=== PATIENT | female | born 1960 | race Caucasian/White ===

== ENCOUNTER 2023-08-29 16:45 | Inpatient (IN) ==
--- NOTE | 2023-08-29 17:09 | ED Triage Note ---
Date of Service August 29, 2023 Provider in Triage Author: Ronnell Ellis A History of Present Illness This patient was briefly evaluated while in triage. An abbreviated physical exam was performed. This patient is a 63-year-old Female who presents to the ED for evaluation of chest pain and elevated blood pressure. Was at [facility] yesterday, and told to come to ER for evaluation. Is on Lisinopril. BP at home running 190's systolic. Feels tightness in chest. Had labs done at [facility] yesterday. Physical Exam Limited Triage Exam: VITALS: Vitals are noted on the nurse's note and reviewed by myself. Vital signs stable. GENERAL: Well-developed, well-nourished, white female, who is in no acute distress and resting comfortably. Patient is cooperative with the examination. HEART: Regular rate and rhythm without murmurs gallops or rubs. LUNGS: Clear to auscultation bilaterally without wheezes, rales or rhonchi. No retractions or accessory muscle use. NEURO: Patient was alert and oriented to person place and time. CN II through XII grossly intact. Initial orders for labs and / or imaging were placed and patient was placed in the waiting area until a bed is available. Please see further documentation for the full ED course. MDM / Impression Impression Impression: Hypertension, Chest pain, Headache Impression: Hypertension Qualifiers: Hypertension type: unspecified Qualified Code(s): I10 - Essential (primary) hy pertension
[2023-08-29 18:29] LABS: Basophils # (auto) 0.07 K/uL (0.00-0.20); Basophils % (auto) 0.8 %; Eosinophils # (auto) 0.21 K/uL (0.00-0.50); Eosinophils % (auto) 2.3 %; Hematocrit (blood only) 35.9 % (37.0-47.0); Hemoglobin 11.4 g/dl (12.0-16.0); Immature Granulocytes # (auto) 0.02 K/uL (0.01-0.20); Immature Granulocytes % (auto) 0.2 %; Lymphocytes # (auto) 2.34 K/uL (1.20-3.40); Lymphocytes % (auto) 25.4 %; Mean Corpuscular Hemoglobin 25.3 pg (25.0-34.0); Mean Corpuscular Hgb Conc 31.8 g/dL (32.0-36.0); Mean Corpuscular Volume 79.6 fL (80.0-100.0); Mean Platelet Volume 9.9 fL (9.4-12.4); Monocytes # (auto) 0.59 K/uL (0.11-0.59); Monocytes % (auto) 6.4 %; Neutrophils # (auto) 5.98 K/uL (1.40-6.50); Neutrophils % (auto) 64.9 %; Platelet Count 496 K/uL (130-400); RDW Coefficient of Variation 14.8 % (11.5-14.5); RDW Standard Deviation 42.9 fL (36.4-46.3); Red Blood Count 4.51 M/uL (4.20-5.40); White Blood Count 9.21 K/ul (4.8-10.8)
--- NOTE | 2023-08-29 18:29 | XRay Report ---
XR chest 1V portable HISTORY: 63 years-old Female Chest pain, nonspecific hypertension with chest pain COMPARISON: None TECHNIQUE: PA view of the chest FINDINGS: Hiatal hernia. Cardiomediastinal and hilar silhouettes are within normal limits. No pneumothorax, ple ural effusion or airspace consolidation. Bones appear grossly intact. IMPRESSION: No acute process. ACT 112: Negative or not required by law. The above report was generated using voice recognition software. It may contain grammatical, syntax o r spelling errors. Electronically signed by: Julián Duarte M.D. 08/29/2023 6:28 PM
[2023-08-29 18:45] LABS: Albumin Globulin Ratio 1.2 (0.9-2); Albumin Level 4.1 gm/dl (3.4-5.0); BUN Creatinine Ratio 19.8 (10-20); Bilirubin,Total 0.3 mg/dl (0.2-1.0); Calcium 8.9 mg/dl (8.6-10.3); Creatinine Clr Calc Pharmacy 64.9 ml/min; Est GFR (African American) 76.7 ml/min; Est GFR (Non-African American) 66.2 ml/min; Globulin 3.4 gm/dl (2.5-4.0); Magnesium 2.1 mg/dl (1.7-2.4); Potassium 3.4 mmol/L (3.5-5.1); Total Protein 7.5 gm/dl (6.0-8.3)
[2023-08-29 18:50] LABS: Troponin I High Sensitivity 6.3 pg/ml (0-14)
[2023-08-29 19:00] LABS: Thyroid Stimulating Hormone 1.099 uIu/ml (0.300-4.500)
[2023-08-29 19:09] LABS: Adenovirus PCR Not Detected (NotDetected); Bordetella parapertussis PCR Not Detected (NotDetected); Bordetella pertussis PCR Not Detected (NotDetected); Chlamydia pneumoniae PCR Not Detected (NotDetected); Coronavirus 229E PCR Not Detected (NotDetected); Coronavirus CoV-2 (COVID19)PCR Not Detected (NotDetected); Coronavirus HKU1 PCR Not Detected (NotDetected); Coronavirus NL63 PCR Not Detected (NotDetected); Coronavirus OC43PCR Not Detected (NotDetected); Human Metapneumovirus PCR Not Detected (NotDetected); Influenza A PCR Not Detected (NotDetected); Influenza B PCR Not Detected (NotDetected); Mycoplasma pneumoniae PCR Not Detected (NotDetected); Parainfluenza Virus 1 PCR Not Detected (NotDetected); Parainfluenza Virus 2 PCR Not Detected (NotDetected); Parainfluenza Virus 3 PCR Not Detected (NotDetected); Parainfluenza Virus 4 PCR Not Detected (NotDetected); Respiratory Syncytial VirusPCR Not Detected (NotDetected); Rhinovirus/Enterovirus PCR Not Detected (NotDetected)
[2023-08-29] MEDS ORDERED: LORazepam 1 MG/1 ML SYR ED Inj Use IV STA (21:56)
[2023-08-29] MEDS ORDERED: SODIUM CHLORIDE 0.9% 500 ML IV ONE (21:56)
[2023-08-29 22:00] LABS: Appearance Urine Clear (Clear); Bilirubin Urine Negative (Negative); Blood Urine Negative (Negative); Color Urine Yellow; Glucose Urine UA Negative (Negative); Ketones Urine Negative (Negative); Leukocyte Esterase Urine Negative (Negative); Nitrite Urine Negative (Negative); Protein Urine Negative (Negative); Specific Gravity Urine 1.015 (1.000-1.030); Urobilinogen Urine Negative (Negative); pH Urine 6.5 (4.5-7.5)
--- NOTE | 2023-08-29 23:05 | CT Scan Report ---
Exam(s): CT HEAD Without Contrast EXAM: CT Head Without Intravenous Contrast CLINICAL HISTORY: Reason for exam: TOVAR/HTN. TECHNIQUE: Axial computed tomography images of the head/brain without intravenous contrast. CTDI is 35.08 mGy and DLP is 547.75 mGy-cm. Automated exposure control was utilized for the study. A dose lowering technique was utilized adhering to the principles of ALARA. COMPARISON: No relevant prior studies available. FINDINGS: Brain: Unremarkable. No hemorrhage. No significant white matter disease. No edema. Ventricles: Unremarkable. No ventriculomegaly. Bones/joints: Hyperostosis frontalis interna. No acute fracture. Soft tissues: Unremarkable. Sinuses: Unremarkable as visualized. No acute sinusitis. Mastoid air cells: Unremarkable as visualized. No mastoid effusion. IMPRESSION: No evidence of acute intracranial pathology. Electronically signed by: Kierra Ybarra MD 08/29/23 23:05 PM
[2023-08-29] MEDS ORDERED: hydrALAZINE HCL 20 MG/ML VIAL IV STA (23:11)
[2023-08-29] MEDS ORDERED: AMOXICILLIN/CLAVULANATE 875 MG TAB PO ONE (23:27)
--- NOTE | 2023-08-30 01:06 | Emergency Department Note ---
History of Present Illness General Chief complaint: Hypertension Stated complaint: CHEST TIGHNESS, HIGH BP 190/110, WAS OVER 200 Time Seen by Provider: 08/29/23 21:43 History of Present Illness This 63-year-old female presents the ER with concerns for high blood pressure for the past few days also has a headache and some chest discomfort. Patient denies fever, chills, cough, congestion, flank pain, back pain, shortness of breath, leg pain or swelling. No prior cardiac disease. She takes lisinopril 10 mg daily. She saw the GP yesterday as her stomach was giving her problems from her recent dental extraction and was started on Augmentin and some nausea medicine. They believed her blood pressure was elevated secondary to the recent dental procedure. Past Med/Surg History Social History Smoking Status: Never smoker Preferred Language: Australian Feels Safe at Home: Yes Review of Systems A total of 10 systems reviewed and were otherwise negative Physical Exam Vital Signs Vital Signs - 24 hr 08/29/23 17:06 08/29/23 20:43 08/29/23 21:43 Temperature 36.7 C Temperature Source Temporal Artery Scan Pulse Rate 69 77 Pulse Rate [Right Finger] 81 Respiratory Rate 20 16 Respiratory Effort / Characteristics Non-Labored Spontaneous Non-Labored Spontaneous Respiratory Depth Normal Normal Respiratory Pattern Regular Regular Blood Pressure 231/104 H Blood Pressure [Left Arm] 176/93 H Blood Pressure Mean 146 Blood Pressure Mean [Left Arm] 120 Blood Pressure Position Sitting Blood Pressure Position [Left Arm] Sitting Pulse Oximetry 97 99 Oxygen Delivery Method Room Air Room Air Sepsis Recent Fever Within 48 Hours No Sepsis New/Unexplained Change in Mental Status No Sepsis Action Taken by Nursing No Action Required 08/29/23 23:00 Temperature Temperature Source Pulse Rate Pulse Rate [Right Finger] 79 Respiratory Rate 18 Respiratory Effort / Characteristics Respiratory Depth Respiratory Pattern Blood Pressure Blood Pressure [Left Arm] 170/114 H Blood Pressure Mean Blood Pressure Mean [Left Arm] 132 Blood Pressure Position Blood Pressure Position [Left Arm] Pulse Oximetry 96 Oxygen Delivery Method Room Air Sepsis Recent Fever Within 48 Hours Sepsis New/Unexplained Change in Mental Status Sepsis Action Taken by Nursing VITALS: Vitals are noted on the nurse's note and reviewed by myself. Vital signs stable. GENERAL: Pleasant female anxious appearing, in no acute distress, nondiaphoretic, well-developed well-nourished. SKIN: Capillary reflex less than 2 seconds. HEENT: Normocephalic. PERRLA. EOMI. Nares patent. Mucous membranes moist. Neck is supple without nuchal rigidity. HEART: Regular rate and rhythm LUNGS: Clear to auscultation bilaterally without wheezes, rales or rhonchi. No retractions or accessory muscle use. ABDOMEN: Positive bowel sounds x 4. Normal tympanic percussion. Soft, nontender, without masses or organomegaly. Tavera sign negative. No guarding or rebound tenderness. MUSCULOSKELETAL: No gross musculoskeletal defects. NEURO: Patient was alert and oriented to person place and time. No focal neurological deficits. Course Administered Medications Discontinued Medications Amoxicillin/Clavulanate Potassium (Amoxicillin/Clavulanate 875 Mg Tab) 1 tab PO NOW ONE; Protocol Stop: 08/29/23 23:28 Last Admin: 08/29/23 23:34 Dose: 1 tab Documented By: LUZ MARIA Hydralazine HCl (Hydralazine Hcl 20 Mg/Ml Vial) 10 mg IV NOW STA Stop: 08/29/23 23:12 Last Admin: 08/29/23 23:34 Dose: 10 mg Documented By: LUZ MARIA Sodium Chloride (Nss) 500 mls @ 999 mls/hr IV .Q31M ONE Stop: 08/29/23 22:26 Last Infusion: 08/29/23 22:41 Dose: Infused Documented By: LUZ MARIA Admin: 08/29/23 22:01 Dose: 999 mls/hr Documented By: LUZ MARIA Lorazepam (Lorazepam 1 Mg/1 Ml Syr Ed Inj Use) 1 mg IV ONE STA Stop: 08/29/23 21:57 Last Admin: 08/29/23 22:01 Dose: 1 mg Documented By: LUZ MARIA Medical Decision Making Medical Records Attestation: I reviewed the patient's medical records. Home Medications Current Medication List: was personally reviewed by me Laboratory Data Attestation: I reviewed the patient's lab results. 08/29/23 18:00 08/29/23 18:00 Lab Results 08/29/23 08/29/23 08/29/23 Range/Units 18:00 21:37 22:27 WBC 9.21 (4.8-10.8) K/ul RBC 4.51 (4.20-5.40) M/uL Hgb 11.4 L (12.0-16.0) g/dl Hct 35.9 L (37.0-47.0) % MCV 79.6 L (80.0-100.0) fL MCH 25.3 (25.0-34.0) pg MCHC 31.8 L (32.0-36.0) g/dL RDW Std Deviation 42.9 (36.4-46.3) fL RDW Coeff of Bonnie 14.8 H (11.5-14.5) % Plt Count 496 H (130-400) K/uL MPV 9.9 (9.4-12.4) fL Immature Gran % (Auto) 0.2 % Neut % (Auto) 64.9 % Lymph % (Auto) 25.4 % Sullivan % (Auto) 6.4 % Eos % (Auto) 2.3 % Baso % (Auto) 0.8 % Neut # (Auto) 5.98 (1.40-6.50) K/uL Lymph # (Auto) 2.34 (1.20-3.40) K/uL Sullivan # (Auto) 0.59 (0.11-0.59) K/uL Eos # (Auto) 0.21 (0.00-0.50) K/uL Baso # (Auto) 0.07 (0.00-0.20) K/uL Immature Gran # (Auto) 0.02 (0.01-0.20) K/uL Sodium 140 (136-145) mmol/L Potassium 3.4 L (3.5-5.1) mmol/L Chloride 105 (98-107) mmol/L Carbon Dioxide 28 (21-32) mmol/L Anion Gap 7 (3-11) BUN 18 (6-23) mg/dl Creatinine 0.91 (0.6-1.2) mg/dl Est Cr Clr Drug Dosing 64.9 ml/min Est GFR ( Amer) 76.7 ml/min Est GFR (Non-Af Amer) 66.2 ml/min BUN/Creatinine Ratio 19.8 (10-20) Glucose 93 (70-99(Fasting)) mg/dl Calcium 8.9 (8.6-10.3) mg/dl Magnesium 2.1 (1.7-2.4) mg/dl Total Bilirubin 0.3 (0.2-1.0) mg/dl AST 11 L (13-39) U/L ALT 13 (7-52) U/L Alkaline Phosphatase 108 H (34-104) U/L Troponin I High Sens 6.3 3.6 (0-14) pg/ml Total Protein 7.5 (6.0-8.3) gm/dl Albumin 4.1 (3.4-5.0) gm/dl Globulin 3.4 (2.5-4.0) gm/dl Albumin/Globulin Ratio 1.2 (0.9-2) Lipase 27 (11-82) U/L TSH 1.099 (0.300-4.500) uIu/ml Urine Color Yellow Urine Appearance Clear (Clear) Urine pH 6.5 (4.5-7.5) Ur Specific [place] 1.015 (1.000-1.030) Urine Protein Negative (Negative) Urine Glucose (UA) Negative (Negative) Urine Ketones Negative (Negative) Urine Blood Negative (Negative) Urine Nitrite Negative (Negative) Urine Bilirubin Negative (Negative) Urine Urobilinogen Negative (Negative) Ur Leukocyte Esterase Negative (Negative) Adenovirus (PCR) Not Detected (NotDetected) B. pertussis DNA (PCR) Not Detected (NotDetected) B.parapertussis DNA PCR Not Detected (NotDetected) C. pneumoniae DNA (PCR) Not Detected (NotDetected) Coronavirus OC43 (PCR) Not Detected (NotDetected) Coronavirus HKU1 (PCR) Not Detected (NotDetected) Coronavirus 229E (PCR) Not Detected (NotDetected) SARS-CoV-2 (PCR) Not Detected (NotDetected) Coronavirus NL63 (PCR) Not Detected (NotDetected) Human Metapneumovir PCR Not Detected (NotDetected) Influenza Type A (PCR) Not Detected (NotDetected) Influenza Type B (PCR) Not Detected (NotDetected) M. pneumoniae (PCR) Not Detected (NotDetected) Parainfluenza 1 (PCR) Not Detected (NotDetected) Parainfluenza 2 (PCR) Not Detected (NotDetected) Parainfluenza 3 (PCR) Not Detected (NotDetected) Parainfluenza 4 (PCR) Not Detected (NotDetected) RSV (PCR) Not Detected (NotDetected) Entero/Rhino (PCR) Not Detected (NotDetected) Imaging Data Attestation: I personally reviewed and interpreted this imaging study as follows: Radiologist's Impression: Chest X-Ray 08/29/23 17:09 XR chest 1V portable HISTORY: 63 years-old Female Chest pain, nonspecific hypertension with chest pain COMPARISON: None TECHNIQUE: PA view of the chest FINDINGS: Hiatal hernia. Cardiomediastinal and hilar silhouettes are within normal limits. No pneumothorax, pleural effusion or airspace consolidation. Bones appear grossly intact. IMPRESSION: No acute process. ACT 112: Negative or not required by law. The above report was generated using voice recognition software. It may contain grammatical, syntax or spelling errors. Electronically signed by: Julián Duarte M.D. 08/29/2023 6:[address] 08/29/23 21:50 Exam(s): CT HEAD Without Contrast EXAM: CT Head Without Intravenous Contrast CLINICAL HISTORY: Reason for exam: TOVAR/HTN. TECHNIQUE: Axial computed tomography images of the head/brain without intravenous contrast. CTDI is 35.08 mGy and DLP is 547.75 mGy-cm. Automated exposure control was utilized for the study. A dose lowering technique was utilized adhering to the principles of ALARA. COMPARISON: No relevant prior studies available. FINDINGS: Brain: Unremarkable. No hemorrhage. No significant white matter disease. No edema. Ventricles: Unremarkable. No ventriculomegaly. Bones/joints: Hyperostosis frontalis interna. No acute fracture. Soft tissues: Unremarkable. Sinuses: Unremarkable as visualized. No acute sinusitis. Mastoid air cells: Unremarkable as visualized. No mastoid effusion. IMPRESSION: No evidence of acute intracranial pathology. Electronically signed by: Kierra Ybarra MD 08/29/23 23:05 PM [facility] Narrative Prior records/ancillary studies reviewed regarding the history above. Triage Nursing notes reviewed. Additional history obtained from nursing The patient's history was concerning for hypertension. Differential diagnosis: Etiologies such as benign hypertension, hypertensive emergency, cardiovascular pathology, pheochromocytoma, electrolyte abnormality, renal disease, endorgan damage, as well as others were entertained. Physical examination: As above. No signs of end organ damage. ER treatment provided: An order was placed for continuous cardiac monitoring. The monitor shows a rate of 60-100 with a sinus rhythm per my interpretation. Ativan, hydralazine On reassessment the patient felt better. Diagnostic interpretation by me: The electrocardiogram was ordered for HTN ECG: Normal sinus, normal intervals, Q waves in the inferior lead, no acute ST-T wave changes, rate of 67. Impression normal sinus rhythm Q-wave in the inferior leads independently interpreted by myself The labs Independently Interpreted by myself revealed 2 negative troponins, euthyroid Imaging studies: CT of the head negative for intracranial bleed per my independent interpretation and report was reviewed as above Chest x-ray with no acute consolidation, pneumothorax or free air per my independent interpretation Consultation: A consultation was placed with the hospitalist. The case was discussed and diagnostics were reviewed. The patient was evaluated in the ER for further treatment. HEART SCORE: Hx: high/mod/low suspicion: 0 ECG: ST depression/nonspecific changes/normal: 0 Age: Greater than 65/45-64/less than 45: 2 Risk factors: (Hypertension, hyperlipidemia, diabetes, coronary disease, tobacco use, cocaine use): 1 Troponin: Greater than 2 times normal limits/1-2 times normal limits/normal: 0 Total: 3 This appears to be consistent with uncontrolled hypertension with chest pain. The family doctor sent the patient in for further evaluation and workup. Imaging was negative. Nonischemic EKG. 2 negative troponins. Medicine was consulted and the case was discussed. Patient be admitted to the medical service for her elevated blood pressure. By the evaluation outlined above emergent etiologies such as hypertensive emergency, pheochromocytoma, endorgan damage, aortic dissection, pulmonary embolism, pneumonia, pneumothorax, infections, gastrointestinal, as well as others were deemed relatively unlikely. The pt informed about the findings as listed above. All questions were answered and pleased with the treatment. The chart was completed utilizing [employer] voice recognition software. Grammatical errors, random word insertions, pronoun errors, and incomplete sentences are an occassional consequence of this system due to software limitations, ambient noise, and hardware issues. Any formal questions or concerns about the content, text, or information contained within the body of this dictation should be directly addressed to the physician plant attendant or assistant operator for clarification. Impression & Plan Hypertension, Chest pain, Headache Discharge Plan Visit Data Chief Complaint: Hypertension Stated Complaint: CHEST TIGHNESS, HIGH BP 190/110, WAS OVER 200 ED Provider: Gaston Sandoval ED Midlevel Provider: Karyn Boyd Discharge Problem: Hypertension, Chest pain, Headache Patient Disposition: Admitted As Inpatient Condition: Good Forms Stand Alone Forms: [facility] Referrals Referrals: PCP,NO [Primary Care Provider] - Discharge Problem: Hypertension Qualifiers: Hypertension type: unspecified Qualified Code(s): I10 - Essential (primary) hypertension
--- NOTE | 2023-08-30 01:59 | History & Physical Report ---
Date of Service August 30, 2023 Assessment & Plan (1) Hypertensive urgency: Plan: 62-year-old female with past med history significant for hypertension, obesity, stage III kidney disease presents with hypertensive urgency. Patient went to PCPs office yesterday for abdominal discomfort thought could be diverticulitis and prescribed Augmentin. Her blood pressure was high there. But it seemed to get better. But advised to come to the ER if gets elevated. Blood pressures running in 200s.Says has some funny feelings in the chest. No shortness of breath. Currently no cough. No fevers. Has headache. Vision is okay. Appetite is okay. No abdominal pain. She is having alternating constipation and diarrhea for last couple of weeks. Denies any blood in the stools. Normal bladder movements. Hypertensive urgency Received IV hydralazine in the ER Placed on IV labetalol as needed Increase lisinopril to 20 mg daily Follow echo Monitor on telemetry floor Consult cardiology in a.m. for further recommendations Chest discomfort Possible from above 2 sets of troponins negative Will follow repeat troponins and echo Obesity needs counseling Possible diverticulitis Continue Augmentin Full liquid diet for now Will follow CT abdomen pelvis CKD stage III Will follow labs DVT prophylaxis Lovenox Disposition Telemetry floor Full code History of Present Illness Chief Complaint: Hypertensive urgency Primary Care Provider: NO PCP 62-year-old female with past med history significant for hypertension, obesity, stage III kidney disease presents with hypertensive urgency. Patient went to PCPs office yesterday for abdominal discomfort thought could be diverticulitis and prescribed Augmentin. Her blood pressure was high there. But it seemed to get better. But advised to come to the ER if gets elevated. Blood pressures running in 200s.Says has some funny feelings in the chest. No shortness of breath. Currently no cough. No fevers. Has headache. Vision is okay. Appetite is okay. No abdominal pain. She is having alternating constipation and diarrhea for last couple of weeks. Denies any blood in the stools. Normal bladder movements. Past medical history as mentioned above Past surgical history. Right breast biopsy. Colonoscopy. Right knee arthroscopy. Social history. . No smoking. Alcohol rarely. No drug use. Family history. No family history on file Allergies Allergy/AdvReac Type Severity Reaction Status Date / Time No Known Drug Allergies Allergy Unknown Verified 08/30/23 03:22 Home Medications Medication Instructions Recorded Confirmed Type amoxicillin 875 mg-potassium 1 tab PO BID 08/30/23 08/30/23 History clavulanate 125 mg tablet lisinopril 10 mg tablet 10 mg PO DAILY 08/30/23 08/30/23 History omeprazole 20 mg capsule,delayed 20 mg PO DAILY 08/30/23 08/30/23 History release Past Med/Surg History Social History Smoking Status: Never smoker Hx Alcohol Use: Yes Hx Substance Use: No Preferred Language: Occitan Communication Ability: Effective Venetian Blind [employer]er Required: No Beliefs That Will Affect Care: None Current Living Situation: Spouse Feels Safe at Home: Yes Safety Concerns: Feels Safe At This Time Review of Systems Review of Systems: All systems reviewed & are unremarkable except as noted in HPI & below Physical Exam Physical Exam: General- Not in distress Head- atraumatic Eyes- PERRL. ENT- oropharynx clear Neck- supple, no JVD. Lungs- clear to auscultation no wheezing or crackles. Heart- regular rhythm; no murmur, no gallop. Abdomen- normal bowel sounds, soft, nontender, no distension. Extremities- no pretibial edema, no erythema Neuro- alert, oriented x 3; PERRL, no facial palsy; no dysarthria; moves extrem ities. Results & Data Results & Data Vital Signs (Past 12 Hours) Vital Signs Temp Pulse Pulse Resp BP BP Pulse Ox 08/30/23 01:47 91 H 08/30/23 01:00 91 H 18 176/98 H 96 08/29/23 23:00 79 18 170/114 H 96 08/29/23 21:43 77 08/29/23 20:43 81 16 176/93 H 99 08/29/23 17:06 36.7 C 69 20 231/104 H 97 O2 Del Method 08/30/23 01:47 08/30/23 01:00 Room Air 08/29/23 23:00 Room Air 08/29/23 21:43 08/29/23 20:43 Room Air 08/29/23 17:06 Room Air Diagnostic Findings Laboratory Results WBC 9.21 K/ul (4.8-10.8) 08/29/23 18:00 RBC 4.51 M/uL (4.20-5.40) 08/29/23 18:00 Hgb 11.4 g/dl (12.0-16.0) L 08/29/23 18:00 Hct 35.9 % (37.0-47.0) L 08/29/23 18:00 MCV 79.6 fL (80.0-100.0) L 08/29/23 18:00 MCH 25.3 pg (25.0-34.0) 08/29/23 18:00 MCHC 31.8 g/dL (32.0-36.0) L 08/29/23 18:00 RDW Std Deviation 42.9 fL (36.4-46.3) 08/29/23 18:00 RDW Coeff of Bonnie 14.8 % (11.5-14.5) H 08/29/23 18:00 Plt Count 496 K/uL (130-400) H 08/29/23 18:00 MPV 9.9 fL (9.4-12.4) 08/29/23 18:00 Immature Gran % (Auto) 0.2 % 08/29/23 18:00 Neut % (Auto) 64.9 % 08/29/23 18:00 Lymph % (Auto) 25.4 % 08/29/23 18:00 [place] % (Auto) 6.4 % 08/29/23 18:00 Eos % (Auto) 2.3 % 08/29/23 18:00 Baso % (Auto) 0.8 % 08/29/23 18:00 Neut # (Auto) 5.98 K/uL (1.40-6.50) 08/29/23 18:00 Lymph # (Auto) 2.34 K/uL (1.20-3.40) 08/29/23 18:00 [place] # (Auto) 0.59 K/uL (0.11-0.59) 08/29/23 18:00 Eos # (Auto) 0.21 K/uL (0.00-0.50) 08/29/23 18:00 Baso # (Auto) 0.07 K/uL (0.00-0.20) 08/29/23 18:00 Immature Gran # (Auto) 0.02 K/uL (0.01-0.20) 08/29/23 18:00 Sodium 140 mmol/L (136-145) 08/29/23 18:00 Potassium 3.4 mmol/L (3.5-5.1) L 08/29/23 18:00 Chloride 105 mmol/L (98-107) 08/29/23 18:00 Carbon Dioxide 28 mmol/L (21-32) 08/29/23 18:00 Anion Gap 7 (3-11) 08/29/23 18:00 BUN 18 mg/dl (6-23) 08/29/23 18:00 Creatinine 0.91 mg/dl (0.6-1.2) 08/29/23 18:00 Est Cr Clr Drug Dosing 64.9 ml/min 08/29/23 18:00 Est GFR ( Amer) 76.7 ml/min 08/29/23 18:00 Est GFR (Non-Af Amer) 66.2 ml/min 08/29/23 18:00 BUN/Creatinine Ratio 19.8 (10-20) 08/29/23 18:00 Glucose 93 mg/dl (70-99(Fasting)) 08/29/23 18:00 Calcium 8.9 mg/dl (8.6-10.3) 08/29/23 18:00 Magnesium 2.1 mg/dl (1.7-2.4) 08/29/23 18:00 Total Bilirubin 0.3 mg/dl (0.2-1.0) 08/29/23 18:00 AST 11 U/L (13-39) L 08/29/23 18:00 ALT 13 U/L (7-52) 08/29/23 18:00 Alkaline Phosphatase 108 U/L (34-104) H 08/29/23 18:00 Troponin I High Sens 3.6 pg/ml (0-14) 08/29/23 22:27 Total Protein 7.5 gm/dl (6.0-8.3) 08/29/23 18:00 Albumin 4.1 gm/dl (3.4-5.0) 08/29/23 18:00 Globulin 3.4 gm/dl (2.5-4.0) 08/29/23 18:00 Albumin/Globulin Ratio 1.2 (0.9-2) 08/29/23 18:00 Lipase 27 U/L (11-82) 08/29/23 18:00 TSH 1.099 uIu/ml (0.300-4.500) 08/29/23 18:00 Urine Color Yellow 08/29/23 21:37 Urine Appearance Clear (Clear) 08/29/23 21:37 Urine pH 6.5 (4.5-7.5) 08/29/23 21:37 Ur Specific [place] 1.015 (1.000-1.030) 08/29/23 21:37 Urine Protein Negative (Negative) 08/29/23 21:37 Urine Glucose (UA) Negative (Negative) 08/29/23 21:37 Urine Ketones Negative (Negative) 08/29/23 21:37 Urine Blood Negative (Negative) 08/29/23 21:37 Urine Nitrite Negative (Negative) 08/29/23 21:37 Urine Bilirubin Negative (Negative) 08/29/23 21:37 Urine Urobilinogen Negative (Negative) 08/29/23 21:37 Ur Leukocyte Esterase Negative (Negative) 08/29/23 21:37 Adenovirus (PCR) Not Detected (NotDetected) 08/29/23 18:00 B. pertussis DNA (PCR) Not Detected (NotDetected) 08/29/23 18:00 B.parapertussis DNA PCR Not Detected (NotDetected) 08/29/23 18:00 C. pneumoniae DNA (PCR) Not Detected (NotDetected) 08/29/23 18:00 Coronavirus OC43 (PCR) Not Detected (NotDetected) 08/29/23 18:00 Coronavirus HKU1 (PCR) Not Detected (NotDetected) 08/29/23 18:00 Coronavirus 229E (PCR) Not Detected (NotDetected) 08/29/23 18:00 SARS-CoV-2 (PCR) Not Detected (NotDetected) 08/29/23 18:00 Coronavirus NL63 (PCR) Not Detected (NotDetected) 08/29/23 18:00 Human Metapneumovir PCR Not Detected (NotDetected) 08/29/23 18:00 Influenza Type A (PCR) Not Detected (NotDetected) 08/29/23 18:00 Influenza Type B (PCR) Not Detected (NotDetected) 08/29/23 18:00 M. pneumoniae (PCR) Not Detected (NotDetected) 08/29/23 18:00 Parainfluenza 1 (PCR) Not Detected (NotDetected) 08/29/23 18:00 Parainfluenza 2 (PCR) Not Detected (NotDetected) 08/29/23 18:00 Parainfluenza 3 (PCR) Not Detected (NotDetected) 08/29/23 18:00 Parainfluenza 4 (PCR) Not Detected (NotDetected) 08/29/23 18:00 RSV (PCR) Not Detected (NotDetected) 08/29/23 18:00 Entero/Rhino (PCR) Not Detected (NotDetected) 08/29/23 18:00 Impressions Chest X-Ray 08/29/23 17:09 XR chest 1V portable HISTORY: 63 years-old Female Chest pain, nonspecific hypertension with chest pain COMPARISON: None TECHNIQUE: PA view of the chest FINDINGS: Hiatal hernia. Cardiomediastinal and hilar silhouettes are within normal limits. No pneumothorax, pleural effusion or airspace consolidation. Bones appear grossly intact. IMPRESSION: No acute process. ACT 112: Negative or not required by law. The above report was generated using voice recognition software. It may contain grammatical, syntax or spelling errors. Electronically signed by: Julián Duarte M.D. 08/29/2023 6:[address] 08/29/23 21:50 Exam(s): CT HEAD Without Contrast EXAM: CT Head Without Intravenous Contrast CLINICAL HISTORY: Reason for exam: TOVAR/HTN. TECHNIQUE: Axial computed tomography images of the head/brain without intravenous contrast. CTDI is 35.08 mGy and DLP is 547.75 mGy-cm. Automated exposure control was utilized for the study. A dose lowering technique was utilized adhering to the principles of ALARA. COMPARISON: No relevant prior studies available. FINDINGS: Brain: Unremarkable. No hemorrhage. No significant white matter disease. No edema. Ventricles: Unremarkable. No ventriculomegaly. Bones/joints: Hyperostosis frontalis interna. No acute fracture. Soft tissues: Unremarkable. Sinuses: Unremarkable as visualized. No acute sinusitis. Mastoid air cells: Unremarkable as visualized. No mastoid effusion. IMPRESSION: No evidence of acute intracranial pathology. Electronically signed by: Kierra Ybarra MD 08/29/23 23:05 PM ECG Additional Comments: ECG. Normal sinus rhythm with rate of 67. Minimal voltage cardia for LVH. Q waves in inferior leads Code Status & VTE Plan VTE Prophylaxis Plan VTE Prophylaxis will be ordered: Yes
--- OUTSIDE RECORDS SUMMARY | 2023-08-30 02:46 | External Medical Summary | Summary of Care ---
Author Name Unknown Organization [facility] Address [address] [place] [address] Phone [phone] Care Team Providers Care Emergency Worker Name Role Phone Gatito Doss MD Primary Care Provider [phone] Encounter Details Date Type Department Care Team Description 04/24/2023 Orders Only Outcomes Research Department [address] [place] [address] Karyn Barclay [employer] Research Other*[id number] Allergies No known active allergiesdocumented as of this encounter (statuses as of 04/24/2023) Medications Medication Sig Dispensed Refills Start Date End Date Status Calcium 500 MG Oral TabletIndications:Oste oarthritis of multiple joints, unspecified osteoarthritis type Take 1 Tab by mouth daily. 90 Tab 1 07/20/2020 Active Baclofen 20 MG Oral TabletIndications:Cerv icalgia Take by mouth 1 Tablet in the morning AND 1 Tablet at noon AND 1 Tablet before bedtime. 30 Tablet 0 01/22/2022 Active Lisinopril 10 MG Oral Tablet (Prinivil)Indications: Benign hypertension with CKD (chronic kidney disease) stage III (HCC),Stage 3a chronic kidney disease (HCC),Primary hypertension TAKE ONE TABLET BY MOUTH IN THE MORNING 90 Tablet 1 10/23/2022 Active Celecoxib 200 MG Oral Capsule (CeleBREX)Indications: Osteoarthritis of multiple joints, unspecified osteoarthritis type TAKE 1 CAPSULE BY MOUTH EVERY MORNING 90 Capsule 1 12/03/2022 Active Omeprazole 20 MG Oral Capsule Delayed Release (PriLOSEC)Indications: Gastroesophageal reflux disease without esophagitis TAKE ONE CAPSULE BY MOUTH EVERY DAY 90 Capsule 1 01/29/2023 Active documented as of this encounter (statuses as of 04/24/2023) Active Problems Problem Noted Date Body mass index (BMI) of 40.0 to 44.9 in adult 02/12/2022 Overview: 214 Benign hypertension with stage 3a chroni c kidney disease 05/15/2021 Overview: Per CKD protocol Primary hypertension 07/20/2020 Stage 3a chronic kidney disease 07/20/20 20 Overview: EGFR 52.6 documented as of this encounter (statuses as of 04/24/2023) Resolved Problems Problem Noted Date Resolved Date BMI 37.0-37.9, adult 07/20/2020 04/25/2022 Overview: 207 Benign hypertension with CKD (chronic kidney disease) stage III 07/20/2020 05/18/2021 Overview: Per CKD protocol documented as of this encounter (statuses as of 04/24/2023) Immunizations Name Administration Dates Next Due Covid-19 Ad26, Single Dose (Twin/J&J) 021 Seasonal Influenza, PF, 6 mo ns & Above, IM , (Flulaval) 06/23/2021,07/20/2020 TDAP (age 10 and older)(Boostrix) 09/02/2017 Zoster Vaccine Recombinant (Shingrix) 10/20/2020 ,07/20/2020 documented as of this encounter Social History Tobacco Use Types Packs/Day Years Used Date Smoking Tobacco: Never Smokeless Tobacco: Never Alcohol Use Standard Drinks/Week Comments Yes 0 (1 standard drink = 0.6 oz pur e alcohol) 2 times a year. glass of wine Food Insecurity Answer Date Recorded Within the past 12 months, y ou worried that your food would run out before you got money to buy more. Never true 03/02/2021 Within the past 12 months, t he food you bought just didn't last and you didn't have money to get more. Never true 03/02/2021 Sex Assigned at Date Recorded Not on file Job Start Date Occupation Industry Not on file Not on file Not on file documented as of this encounter Plan of Treatment Upcoming Encounters Date Type Specialty Care Team Description 05/03/2023 Office Visit Orthopedics Boyd Middleton MD [address] [place] [id number] Scheduled Orders Name Type Priority Associated Diagnoses Orde r Schedule MYCODE SUBSEQUENT ADULT Lab Routine My[facility] Research Other*[id number] Every 6 Months for 2 Occurrences starting 04/24/2023 until 05/13/2024 Scheduled Procedures Name Priority Associated Diagnoses Date/Ti me COLONOSCOPY FLEXIBLE PROXIMAL DIAGNOSTIC Recall Screen for colon cancer Health Maintenance Due Date Last Done Comments Depression Screening, Annual for Pts 12 and Over 1970 HIV Screening 1973 Cologuard 2003 Fecal Occult Blood Test 2003 Sigmoidoscopy 2003 COVID-19 Vaccine (2 - Booster for Twin series) 06/08/2021 04/13/2021 DXA Scan 2023 Pneumococcal Vaccine: 65+ Years (1 - PCV) 2023 Albumin/Creatinine Ratio 03/23/2023 03/23/2022 GFR 04/08/2023 10/09/2022, 03/03, 04/18/2021, Additional history exists CKD HGB USE SMARTSET 70620 04/25/202304/25, 03/23/2022, 07/20/2020 Influenza Vaccine (FLU shot) (#1) 2023 06/23/2021, 07/20/2020 Mammogram 09/18/2023 09/18/2022, 01/12/2021 CKD PHOS USE SMARTSET [id number] 10/09/2023 10/09/2022, 0 04/18/2021 Lipid Panel 07/20/2025 07/20/2020 Diabetes Screening 10/09/2025 10/09/2022, 0 03/23/2022, 04/18/2021, Additional history exists DTaP,Tdap,and Td Vaccines (2 - Td or Tdap) 09/02/2027 09/02/2017 Colonoscopy 09/20/2030 09/20/2020, 09/20/2020 Colorectal Cancer Screening 09/20/2030 Zoster Vaccines Completed 10/20/2020, 07/20/2020 Pap Smear Discontinued 09/15/2021 GARDASIL-HPV IMMUNIZATION SERIES Aged Out No longer eligible based on patient's age to complete this topic Hepatitis B Aged Out No longer eligi ble based on patient's age to complete this topic MENINGOCOCCAL (MENACTRA/MENVEO) Aged Out No longer eligible based on patient's age to complete this topic documented as of this encounter Medical Devices Not on filedocumented as of this encounter Visit Diagnoses Diagnosis MyCode Research Other*[id number] documented in this encounter Care Teams Emergency Worker Relationship Specialty Start Date End Date Gatito Doss MD [address] [place] [address] [place] [address] PCP - General Family Medicine 07/20/20 documented as of this encounter
--- OUTSIDE RECORDS SUMMARY | 2023-08-30 02:46 | External Medical Summary ---
Author Name Unknown Address Unknown Organization [id number]:[facility] [place] [address] [place] [address] Laboratory Report Ordering Provider Test Date Status FRANCISCO,DURA 08/28/2023 16:30:39 Final Observation Date Value Abnormality Reference (Units ) Status BUN 08/28/2023 16:30:39 15 6-20 (mg/dL) Final Creatinine 08/28/2023 16:30:39 0.9 0.5-1.0 (mg/dL) Final Glomerular filtration rate/1.73 sq M.predicted [Volume Rate/Area] in Serum, Plasma or Blood by Creatinine-based formula (CKD-EPI) 08/28/2023 16:30:39 76 >=60 (mL/min) Final eGFR is calculated based on the CKD-EPI 2020 equation SODIUM 08/28/2023 16:30:39 142 135-146 (m mol/L) Final Potassium 08/28/2023 16:30:39 3.4 Below low normal 3.5 -5.1 (mmol/L) Final Cl 08/28/2023 16:30:39 104 98-107 (mm ol/L) Final CO2 08/28/2023 16:30:39 28 22-32 (mmo l/L) Final Anion gap 08/28/2023 16:30:39 10 7-15 (mmol /L) Final Glucose 08/28/2023 16:30:39 102 70-120 (mg /dL) Final Calcium 08/28/2023 16:30:39 9.0 8.4-10.2 ( mg/dL) Final Performing Location [facility] [place] [address] [place] [address]
--- OUTSIDE RECORDS SUMMARY | 2023-08-30 02:46 | External Medical Summary ---
Author Name Unknown Address Unknown Organization [id number][place] [place] [address] [place] [address] Laboratory Report Ordering Provider Test Date Status FRANCISCO,DURA 08/28/2023 16:30:39 Final Normal: <30 mg/g creatinine< br/>High: 30-300 mg/g creatinine
Very High: >300 mg/g creatinine
Nephrotic: >2200 mg/g creatinine Observation Date Value Abnormality Reference (Units ) Status Albumin, Urine 08/28/2023 16:30:39 5.13 (mg/dL) Final Creatinine, Urine 08/28/2023 16:30:39 330 (mg/dL) Final Albumin/Creatinine [Mass Ratio] in Urine 08/28/2023 16:30:39 16 <30 (mg/g Creat) Final Performing Location [facility] [place] [address] [place] [address]
--- OUTSIDE RECORDS SUMMARY | 2023-08-30 02:46 | External Medical Summary | Summary of Care ---
Author Name Unknown Organization [facility] Address [address] [facility] [place] [address] Phone [phone] Care Team Providers Care Procurement Manager Name Role Phone Gatito Doss MD Primary Care Provider + [phone] Reason for Visit * Reason Comments Acute Encounter Details Date Type Department Care Team (Latest Contact Info) Description 08/28/2023 3:40 PM EST Office Visit Family Medicine [address] [address] Indu Ramos MD [address] [place] [address] [place] [address] Diverticulitis of colon*; Nausea without vomiting Allergies No known active allergiesdocumented as of this encounter (statuses as of 08/28/2023) Medications Medication Sig Dispensed Refills Start Date End Date Status Baclofen 20 MG Oral TabletIndications:Cer vicalgia Take by mouth 1 Tablet in the morning AND 1 Tablet at noon AND 1 Tablet before bedtime. 30 Tablet 0 01/22/2022 Active Calcium 500 MG Oral TabletIndications:Ost eoarthritis of multiple joints, unspecified osteoarthritis type Take 1 Tablet by mouth in the morning. 90 Tablet 1 04/29/2023 Active Lisinopril 10 MG Oral Tablet (Prinivil)Indications :Benign hypertension with CKD (chronic kidney disease) stage III (HCC),Stage 3a chronic kidney disease (HCC),Primary hypertension TAKE 1 TABLET BY MOUTH EVERY MORNING 90 Tablet 1 05/03/2023 Active Omeprazole 20 MG Oral Capsule Delayed Release (PriLOSEC)Indications :Gastroesophageal reflux disease without esophagitis TAKE ONE CAPSULE BY MOUTH EVERY DAY 90 Capsule 0 08/09/2023 Active Celecoxib 200 MG Oral Capsule (CeleBREX)Indications :Osteoarthritis of multiple joints, unspecified osteoarthritis type TAKE ONE CAPSULE BY MOUTH IN THE MORNING 90 Capsule 0 08/09/2023 Active Amoxicillin-Pot Clavulanate 875-125 MG Oral Tablet (Augmentin)Indication s:Diverticulitis of colon Take 1 Tablet by mouth in the morning and 1 Tablet before bedtime. Do all this for 10 days. 20 Tablet 0 08/28/2023 09/07/2023 Active Ondansetron HCl 4 MG Oral TabletIndications:Apollo sea without vomiting Take 1 Tablet by mouth every 8 hours as needed for Nausea. 30 Tablet 0 08/28/2023 Active documented as of this encounter (statuses as of 08/28/2023) Active Problems Problem Noted Date Diagnosed Date Body mass index (BMI) of 40.0 to 44.9 in adult 0 02/12/2022 Overview: 214 Benign hypertension with stage 3a chronic kidney disease 05/15/2021 Overview: Per CKD protocol Primary hypertension 07/20/2020 Stage 3a chronic kidney disease 07/20/2020 Overview: EGFR 52.6 documented as of this encounter (statuses as of 08/28/2023) Resolved Problems Problem Noted Date Diagnosed Date Resolved Date BMI 37.0-37.9, adult 07/20/2020 022 Overview: 207 Benign hypertension with CKD (chronic kidney disease) stage III 07/20/2020 05/18/2021 Overview: Per CKD protocol documented as of this encounter (statuses as of 08/28/2023) Immunizations Name Administration Dates Next Due Covid-19 Ad26, Single Dose (Twin/J&J) 021 Seasonal Influenza, PF, 6 M & above, IM , (FluLaval or Fluzone) 06/23/2021,07/20/2020 TDAP (age 10 and older)(Boostrix) 09/02/2017 Zoster Vaccine Recombinant (Shingrix) 10/20/2020 ,07/20/2020 documented as of this encounter Social History Tobacco Use Types Packs/Day Years Used Date Smoking Tobacco: Never Smokeless Tobacco: Never Alcohol Use Standard Drinks/Week Comments Yes 0 (1 standard drink = 0.6 oz pur e alcohol) 2 times a year. glass of wine Hunger Vital Sign Answer Date Recorded Within the past 12 months, y ou worried that your food would run out before you got the money to buy more. Never true 03/02/20 21 Within the past 12 months, t he food you bought just didn't last and you didn't have money to get more. Never true 03/02/2021 Sex and Gender Information Value Date Recorded Sex Assigned at Not on file Gender Identity Not on file Sexual Orientation Not on file Job Start Date Occupation Industry Not on file Not on file Not on file documented as of this encounter Last Filed Vital Signs Vital Sign Reading Time Taken Comments Blood Pressure 160/96 08/28/2023 4:17 PM EST Pulse 73 08/28/2023 4:04 PM EST Temperature 36.4 C (97.5 F) 08/28/2023 3:48 PM ES T Respiratory Rate - - Oxygen Saturation 99% 08/28/2023 3:48 PM EST Inhaled Oxygen Concentration - - Weight 96.1 kg (211 lb 12.8 oz) 08/28/2023 3:48 PM EST Height - - Body Mass Index 40.02 07/26/2021 9:40 AM EST documented in this encounter Progress Notes * Indu Ramos MD - 08/28/2023 4:07 PM EST Subjective: HPI: Yuly Watson is a 63 year old female with hx of HTN, CKD III seen for For 1 week pt has been having R and mid lower abd pain, loose stool, fatigue - denied any blood in the stool or fever - associated with nausea but no vomiting - did have diarrhea then constipation prior to symptoms onset - denied any rhinorrhea, cough or sore throat Patient Active Problem List Diagnosis Code Primary hypertension I10 Stage 3a chronic kidney disease (HCC) N18.31 Benign hypertension with stage 3a chronic kidney disease (HCC) I12.9, N18.31 Body mass index (BMI) of 40.0 to 44.9 in adult ([facility]) Z68.41 Current Outpatient Medications Medication Sig Dispense Refill Baclofen 20 MG Oral Tablet Take by mouth 1 Tablet in the morning AND 1 Tablet at noon AND 1 Tablet before bedtime. 30 Tablet 0 Calcium 500 MG Oral Tablet Take 1 Tablet by mouth in the morning. 90 Tablet 1 Lisinopril 10 MG Oral Tablet (Prinivil) TAKE 1 TABLET BY MOUTH EVERY MORNING 90 Tablet 1 Omeprazole 20 MG Oral Capsule Delayed Release (PriLOSEC) TAKE ONE CAPSULE BY MOUTH EVERY DAY 90 Capsule 0 Celecoxib 200 MG Oral Capsule (CeleBREX) TAKE ONE CAPSULE BY MOUTH IN THE MORNING 90 Capsule 0 Amoxicillin-Pot Clavulanate 875-125 MG Oral Tablet (Augmentin) Take 1 Tablet by mouth in the morning and 1 Tablet before bedtime. Do all this for 10 days. 20 Tablet 0 Ondansetron HCl 4 MG Oral Tablet Take 1 Tablet by mouth every 8 hours as needed for Nausea. 30 Tablet 0 No current facility-administered medications for this visit. Past Medical History: Diagnosis Date Benign hypertension with CKD (chronic kidney disease) stage III (HCC) 07/20/2020 BMI 37.0-37.9, adult 07/20/2020 207 Encounter for hepatitis C screening test for low risk patient 04/18/2021 negative Primary hypertension 07/20/2020 Rheumatic fever Stage 3a chronic kidney disease (HCC) 07/20/2020 EGFR 52.6 Thrush 11/09/2020 nora albicans Past Surgical History: Procedure Laterality Date BREAST BIOPSY Right benign COLONOSCOPY, DIAGNOSTIC (RECTUM) 09/20/2020 normal with large mouthed sigmoid diverticuli, performed by Mandi Redman MD at [facility] BREAST ALYCIA BILATATERAL Bilateral 01/12/2021 heterogensously dense, category 1 KNEE ARTHROSCOPY/MENISCECTOMY Right 02/2020 Review of patient's allergies indicates: No Known Allergies Family History Problem Relation Age of Onset Breast Cancer No significant family history Social History Tobacco Use Smoking status: Never Smokeless tobacco: Never Substance Use Topics Alcohol use: Yes Comment: 2 times a year. glass of wine Vaping/E-Cigarette Use Vaping/E-Cigarette Substances Vaping/E-Cigarette Devices ROS: -Per HPI OBJECTIVE: BP 160/96 | Pulse 73 | Temp 36.4 C (97.5 F) | Wt 96.1 kg (211 lb 12.8 oz) | LMP 09/02/2013 (Approximate) | SpO2 99% | BMI 40.02 kg/m | BSA 2.03 m PHYSICAL EXAM: Abd: Soft, ND, mild discomfort to palpation of the RLQ ASSESSMENT/PLAN: I suspect diverticulitis (pt does have hx of diverticulosis) - not suspecting appendicitis BP was elevated but improved -- recommend to message the clinic with BP reading in 1 week ER precautions given Diverticulitis of colon (Primary) - Amoxicillin-Pot Clavulanate 875-125 MG Oral Tablet (Augmentin); Take 1 Tablet by mouth in the morning and 1 Tablet before bedtime. Do all this for 10 days. Nausea without vomiting - Ondansetron HCl 4 MG Oral Tablet; Take 1 Tablet by mouth every 8 hours as needed for Nausea. Indu Ramos MD Family medicine, [address] [address] documented in this encounter Nursing Notes * Jocelin Singer CMA - 08/28/2023 3:46 PM EST She is having stomach issues, fatigue, aches and pain. Nausea after she eats. She did have a wisdomtooth pulled about 4weeks ago and has been having trouble since then. documented in this encounter Plan of Treatment Scheduled Procedures Name Priority Associated Diagnoses Date/Ti me COLONOSCOPY FLEXIBLE PROXIMAL DIAGNOSTIC Recall Screen for colon cancer Health Maintenance Due Date Last Done Comments Depression Screening 1970 HIV Screening 1973 Cologuard 2003 Fecal Occult Blood Test 2003 Sigmoidoscopy 2003 DXA Scan 2023 Pneumococcal Vaccine: 65+ Years (1 - PCV) 2023 Albumin/Creatinine Ratio 03/23/2023 03/23/2022 GFR 04/08/2023 10/09/2022, 03/03, 04/18/2021, Additional history exists CKD HGB USE SMARTSET [id number] 04/25/202304/25, 03/23/2022, 07/20/2020 COVID-19 Vaccine ( - season) 2023 04/13/2021 Influenza Vaccine (FLU shot) (#1) 2023 06/23/2021, 07/20/2020 Mammogram 09/18/2023 09/18/2022, 01/12/2021 CKD PHOS USE SMARTSET [id number] 10/09/2023 10/09/2022, 0 04/18/2021 Lipid Panel 07/20/2025 [...] as of this encounter Visit Diagnoses Diagnosis Diverticulitis of colon- Primary Diverticulitis of colon (without mention of hemorrhage) Nausea without vomiting documented in this encounter Care Teams Procurement Manager Relationship Specialty Start Date End Date Gatito Doss MD [address] [place] [address] [place] [phone] PCP - General Family Medicine 07/20/20 documented as of this encounter"
--- OUTSIDE RECORDS SUMMARY | 2023-08-30 02:46 | External Medical Summary | Summary of Care ---
Author Name Unknown Organization [facility] Address [address] [place] [facility] [place] [address] Phone [phone] Care Team Providers Care Soft Top Installer Name Role Phone Gatito Doss MD Primary Care Provider + [phone] Reason for Visit * Reason Onset Date Comments Advice 08/29/2023 High BP Encounter Details Date Type Department Care Team (Late st Contact Info) Description 08/29/2023 Telephone Family Medicine [address] [phone] Gatito Doss MD [address] [place] [address] [place] [address] Advice (High BP //) Allergies No known active allergiesdocumented as of this encounter (statuses as of 08/29/2023) Medications Medication Sig Dispensed Refills Start Date [...] as of this encounter (statuses as of 08/29/2023) Active Problems Problem Noted Date Diagnosed Date Body mass index (BMI) of 40.0 to 44.9 in adult 0 02/12/2022 Overview: 214 Benign hypertension with stage 3a chronic kidney disease 05/15/2021 Overview: Per CKD protocol Primary hypertension 07/20/2020 Stage 3a chronic kidney disease 07/20/2020 Overview: EGFR 52.6 documented as of this encounter (statuses as of 08/29/2023) Resolved Problems Problem Noted Date Diagnosed Date Resolved Date BMI 37.0-37.9, adult 07/20/2020 022 Overview: 207 Benign hypertension with CKD (chronic kidney disease) stage III 07/20/2020 05/18/2021 Overview: Per CKD protocol documented as of this encounter (statuses as of 08/29/2023) Immunizations Name Administration Dates Next Due Covid-19 [...] on file documented as of this encounter Miscellaneous Notes * Telephone Encounter - Elisabeth Wiggins LPN - 08/29/2023 3:22 PM EST Pt calling to report BP. Bp 180/96 229/134 at 9 am today. She feels very fatigued mild headache she feels shaking. She does feel flushed. no chest pain, numbness or vision changes. Pt saw labs this morning, her potassium was low at 3.4 Called office spoke with Kat who was advise by Dr Angulo. She needs to go to ER. She was advised yesterday at her appt if bp remained high to go to ER. Pt verbalized understanding. Pt will go to ER. * Telephone Encounter - Vikas Romero OSA - 08/29/2023 3:20 PM EST Last bp reading 180/96 * Telephone Encounter - Meena Hamm OSA - 08/29/2023 12:08 PM EST Pt calling, states she was seen a couple of days ago for BP concerns. She states this morning it was 229/134 and then 30 min later 215/143. Pt is asking to be advised. Denies feeling dizzy or like she will pass out. Asking to speak with clinic nurse. documented in this encounter Plan of Treatment Scheduled Procedures Name Priority Associated Diagnoses Date/Ti me COLONOSCOPY FLEXIBLE PROXIMAL DIAGNOSTIC Recall Screen for colon cancer Health Maintenance Due Date Last Done Comments Depression Screening 1970 HIV Screening 1973 Cologuard 2003 Fecal Occult Blood Test 2003 Sigmoidoscopy 2003 DXA Scan 2023 Pneumococcal Vaccine: 65+ Years (1 - PCV) 2023 COVID-19 Vaccine (2 - 2022- season) 2023 04/13/2021 Influenza Vaccine (FLU shot) (#1) 2023 06/23/2021, 07/20/2020 Mammogram 09/18/2023 09/18/2022, 01/12/2021 CKD PHOS USE SMARTSET [id number] 10/09/2023 10/09/2022, 0 04/18/2021 GFR 02/27/2024 08/28/2023, 02/0 03/2023, 03/23/2022, Additional history exists Albumin/Creatinine Ratio 08/28/2024 08/28/2023, 0710/2021 CKD HGB USE SMARTSET [id number] 08/28/202408/28, 04/25/2022, 03/23/2022, Additional history exists Lipid Panel 07/20/2025 07/20/2020 Diabetes Screening 08/28/2026 08/28/2023, 0 10/09/2022, 03/23/2022, Additional history exists DTaP,Tdap,and Td Vaccines (2 [...] Not on filedocumented as of this encounter Care Teams Soft Top Installer Relationship Specialty Start Date End Date Gatito Doss MD [address] [place] [address] [place] [phone] PCP - General Family Medicine 07/20/20 documented as of this encounter
--- OUTSIDE RECORDS SUMMARY | 2023-08-30 02:46 | External Medical Summary | Summary of Care ---
Author Name Unknown Organization [facility] Address [address] [place] [address] Phone [phone] Care Team Providers Care Insulation Cutter Name Role Phone Gatito Benavides MD Primary Care Provider + [phone] Reason for Visit * Reason Comments eRx-Medication Refill Encounter Details Date Type Department Care Team Description 05/23/2023 Refill Family Medicine [address] [phone] Gatito Benavides MD [address] [place] [address] [place] [address] Osteoarthritis of multiple joints, unspecified osteoarthritis type Allergies No known active allergiesdocumented as of this encounter (statuses as of 05/23/2023) Medications Medication Sig Dispensed Refills Start Date End Date Status Baclofen 20 MG Oral TabletIndications:Ce rvicalgia Take by mouth 1 Tablet in the morning AND 1 Tablet at noon AND 1 Tablet before bedtime. 30 Tablet 0 01/22/2022 Active Omeprazole 20 MG Oral Capsule Delayed Release (PriLOSEC)Indication s:Gastroesophageal reflux disease without esophagitis TAKE ONE CAPSULE BY MOUTH EVERY DAY 90 Capsule 1 01/29/2023 Active Calcium 500 MG Oral TabletIndications:Os teoarthritis of multiple joints, unspecified osteoarthritis type Take 1 Tablet by mouth in the morning. 90 Tablet 1 04/29/2023 Active Lisinopril 10 MG Oral Tablet (Prinivil)Indication s:Benign hypertension with CKD (chronic kidney disease) stage III (HCC),Stage 3a chronic kidney disease (HCC),Primary hypertension TAKE 1 TABLET BY MOUTH EVERY MORNING 90 Tablet 1 05/03/2023 Active Celecoxib 200 MG Oral Capsule (CeleBREX)Indication s:Osteoarthritis of multiple joints, unspecified osteoarthritis type TAKE 1 CAPSULE BY MOUTH EVERY MORNING 90 Capsule 0 05/23/2023 Active Celecoxib 200 MG Oral Capsule (CeleBREX)Indication s:Osteoarthritis of multiple joints, unspecified osteoarthritis type TAKE 1 CAPSULE BY MOUTH EVERY MORNING 90 Capsule 1 12/03/2022 3 Discontinued documented as of this encounter (statuses as of 05/23/2023) Active Problems Problem Noted Date Body mass index (BMI) of 40.0 to 44.9 in adult 02/12/2022 Overview: 214 Benign hypertension with stage 3a chroni c kidney disease 05/15/2021 Overview: Per CKD protocol Primary hypertension 07/20/2020 Stage 3a chronic kidney disease 07/20/20 20 Overview: EGFR 52.6 documented as of this encounter (statuses as of 05/23/2023) Resolved Problems Problem Noted Date Resolved Date BMI 37.0-37.9, adult 07/20/2020 04/25/2022 Overview: 207 Benign hypertension with CKD (chronic kidney disease) stage III 07/20/2020 05/18/2021 Overview: Per CKD protocol documented as of this encounter (statuses as of 05/23/2023) Immunizations Name Administration Dates Next Due Covid-19 [...] encounter Miscellaneous Notes * Telephone Encounter - Gatito Benavides MD - 05/23/2023 5:28 PM EDTSigned Prescriptions: Disp Refills Celecoxib 200 MG Oral Capsule (CeleBREX) 90 Cap*0 Sig: TAKE 1 CAPSULE BY MOUTH EVERY MORNING Authorizing Provider: GATITO BENAVIDES * Telephone Encounter - Rut Salinas [facility] - 05/23/2023 5:12 PM EDTPending Prescriptions: Disp Refills Celecoxib 200 MG Oral Capsule [Pharmacy Me*90 Cap*0 Sig: TAKE 1 CAPSULE BY MOUTH EVERY MORNING * Telephone Encounter - Rut Salinas [facility] - 05/23/2023 5:11 PM EDT Unable to authorize medication refills for celebrex. Part of the protocol criteria used for refill authorization was not satisfied. Patient has reduced renal function: Baseline method (Adjusted BW): 49.9 (mL/min) Conditions associated with NSAID-induced acute kidney injury (for this patient): Volume depletion: Emesis, diarrhea, sepsis, hemorrhage Medications: Diuretics, ELIZABETH inhibitors, ARBs, calcineurin inhibitors Cirrhosis Congestive heart failure Nephrotic syndrome Hypercalcemia (severe) Chronic kidney disease Renal artery stenosis Older age Please approve if appropriate. Thank you, Rut Salinas [facility] Clinical Pharmacist [facility] ([facility]) (formerly Telepharmacy) 05/23/23 5:11 PM [phone] documented in this encounter Plan of Treatment [...] Additional history exists CKD HGB USE SMARTSET [id number] 04/25/202304/25, 03/23/2022, 07/20/2020 Influenza Vaccine (FLU shot) (#1) 2023 06/23/2021, 07/20/2020 Mammogram 09/18/2023 09/18/2022, 01/12/2021 CKD PHOS USE SMARTSET 70111 10/09/2023 10/09/2022, 0 04/18/2021 Lipid Panel 07/20/2025 [...] as of this encounter Visit Diagnoses Diagnosis Osteoarthritis of multiple joints, unspecified osteoarthritis type documented in this encounter Care Teams Insulation Cutter Relationship Specialty Start Date End Date Gatito Benavides MD [address] [place] [address] [place] [id number] PCP - General Family Medicine 07/20/20 documented as of this encounter
--- OUTSIDE RECORDS SUMMARY | 2023-08-30 02:46 | External Medical Summary | Summary of Care ---
Author Name Unknown Organization [facility] Address [address] [place] [facility] [place] [address] Phone [phone] Care Team Providers Care Lye Boiler Name Role Phone Gatito Doss MD Primary Care Provider + [phone] Reason for Visit * Reason Onset Date Comments Advice 08/29/2023 High BP Encounter Details Date Type Department Care Team (Late st Contact Info) Description 08/29/2023 Telephone Family Medicine [address] [phone] Gatito Doss MD [address] [place] [address] [place] [address] Advice (High BP //) Allergies No [...] 09/18/2023 09/18/2022, 01/12/2021 CKD PHOS USE SMARTSET 43666 10/09/2023 10/09/2022, 0 04/18/2021 GFR 02/27/2024 08/28/2023, 02/0 03/2023, 03/23/2022, Additional history exists Albumin/Creatinine Ratio 08/28/2024 08/28/2023, 0710/2021 CKD HGB USE SMARTSET 89156 08/28/202408/28, 04/25/2022, 03/23/2022, Additional history exists Lipid [...] filedocumented as of this encounter Care Teams Lye Boiler Relationship Specialty Start Date End Date Gatito Doss MD [address] [place] [address] [place] [phone] PCP - General Family Medicine 07/20/20 documented as of this encounter
--- OUTSIDE RECORDS SUMMARY | 2023-08-30 02:46 | External Medical Summary ---
Author Name Unknown Address Unknown Organization K01:[facility] - [address] [facility] [place] [address] Laboratory Report Ordering Provider Test Date Status FRANCISCO,DURA 08/28/2023 16:30:39 Final Observation Date Value Abnormality Reference (Units ) Status Magnesium 08/28/2023 16:30:39 2.4 1.5-2.6 (m g/dL) Final Performing Location [facility] [address] [facility] [address]
--- OUTSIDE RECORDS SUMMARY | 2023-08-30 02:46 | External Medical Summary | Summary of Care ---
Author Name Unknown Organization [facility] Address [address] [facility] [place] [address] Phone [phone] Care Team Providers Care Box Sealing Inspector Name Role Phone Gatito Benavides MD Primary Care Provider + [phone] Reason for Visit * Reason Onset Date Comments Medication Refill 04/26/2023 Encounter Details Date Type Department Care Team Description 04/26/2023 Refill Family Medicine [address] [id number] Gatito Benavides MD [address] [place] [address] [place] [address] Osteoarthritis of multiple joints, unspecified osteoarthritis type Allergies No known active allergiesdocumented as of this encounter (statuses as of 04/29/2023) Medications Medication Sig Dispensed Refills Start Date End Date Status Baclofen 20 MG Oral TabletIndications:Ce rvicalgia Take by mouth 1 Tablet in the morning AND 1 Tablet at noon AND 1 Tablet before bedtime. 30 Tablet 0 01/22/2022 Active Lisinopril 10 MG Oral Tablet (Prinivil)Indication s:Benign hypertension with CKD (chronic kidney disease) stage III (HCC),Stage 3a chronic kidney disease (HCC),Primary hypertension TAKE ONE TABLET BY MOUTH IN THE MORNING 90 Tablet 1 10/23/2022 Active Celecoxib 200 MG Oral Capsule (CeleBREX)Indication [...] the morning. 90 Tablet 1 04/29/2023 Active Calcium 500 MG Oral TabletIndications:Os teoarthritis of multiple joints, unspecified osteoarthritis type Take 1 Tab by mouth daily. 90 Tab 1 07/20/2020 3 Discontinue d(Refill) documented as of this encounter (statuses as of 04/29/2023) Active Problems Problem Noted Date Body mass index (BMI) of 40.0 to 44.9 in adult 02/12/2022 Overview: 214 Benign hypertension with stage 3a chroni c kidney disease 05/15/2021 Overview: Per CKD protocol Primary hypertension 07/20/2020 Stage 3a chronic kidney disease 07/20/20 20 Overview: EGFR 52.6 documented as of this encounter (statuses as of 04/29/2023) Resolved Problems Problem Noted Date Resolved Date BMI 37.0-37.9, adult 07/20/2020 04/25/2022 Overview: 207 Benign hypertension with CKD (chronic kidney disease) stage III 07/20/2020 05/18/2021 Overview: Per CKD protocol documented as of this encounter (statuses as of 04/29/2023) Immunizations Name Administration Dates Next Due Covid-19 [...] Telephone Encounter - Gatito Benavides MD - 04/29/2023 7:56 AM EDTSigned Prescriptions: Disp Refills Calcium 500 MG Oral Tablet 90 Tab*1 Sig: Take 1 Tablet by mouth in the morning. Authorizing Provider: GATITO BENAVIDES * Telephone Encounter - Tara Barros [facility] - 04/26/2023 12:38 PM EDT Pending Prescriptions: Disp Refills Calcium 500 MG Oral Tablet 90 Tab*1 Sig: Take 1 Tablet by mouth in the morning. * Telephone Encounter - Tara Barros [facility] - 04/26/2023 12:38 PM EDT [facility] is currently not authorized to approve refills for the pended medication(s) per refill protocol. Please approve if appropriate. Did you pend patient's preferred pharmacy and medication before forwarding?yes Pharmacy: [id number] [address] [facility] Pending Prescriptions: Disp Refills Calcium 500 MG Oral Tablet 90 Tab*1 Sig: Take 1 Tablet by mouth in the morning. Last Visit: 04/25/2022 (in office), 10/08/2022 (telemedicine) Next Visit: Visit date not found If no future appointments scheduled, and last appointment is greater than a year ago, please schedule patient for a follow-up appointment Last date the medication was ordered: 07/20/2020 Is this request for a controlled substance?No Urine Drug Screen:No results found for this or any previous visit. Patient Phone Numbers Labs: Lab Results Component Value Date/Time CREAT 1.2 (H) 10/09/2022 03:39 PM CREAT 1.1 (H) 07/20/2020 10:57 AM POTASSIUM 4.3 10/09/2022 03:39 PM POTASSIUM 4.4 07/20/2020 10:57 AM TSH 1.93 07/20/2020 10:57 AM LDLCALC 134 (H) 07/20/2020 10:57 AM LDLDIRECT NOT APPLICABLE 07/20/2020 10:57 AM ALT 16 03/23/2022 02:45 PM ALT 12 07/20/2020 10:57 AM Thank you, Tara Barros, PharmD Clinical Pharmacist [facility] ([facility]) (formerly Telepharmacy) 04/26/23 12:38 PM [phone] documented in this encounter Plan of Treatment [...] Additional history exists CKD HGB USE SMARTSET 16038 04/25/202304/25, 03/23/2022, 07/20/2020 Influenza Vaccine (FLU shot) (#1) 2023 06/23/2021, 07/20/2020 Mammogram 09/18/2023 09/18/2022, 01/12/2021 CKD PHOS USE SMARTSET 75472 10/09/2023 10/09/2022, 0 04/18/2021 Lipid Panel 07/20/2025 [...] type documented in this encounter Care Teams Box Sealing Inspector Relationship Specialty Start Date End Date Gatito Benavides MD [address] [place] [address] [place] [address] PCP - General Family Medicine 07/20/20 documented as of this encounter
--- OUTSIDE RECORDS SUMMARY | 2023-08-30 02:46 | External Medical Summary ---
Author Name Unknown Address Unknown Organization K01:LABORATORY [facility] [place] - [address] [place] [address] Laboratory Report Ordering Provider Test Date Status FRANCISCO,DURA 08/28/2023 16:30:39 Final Observation Date Value Abnormality Reference (Units ) Status Hemoglobin 08/28/2023 16:30:39 11.3 Below low normal 12 .0-15.3 (g/dL) Final Performing Location [facility]ATORY [facility] - [address] [place] [address]
--- OUTSIDE RECORDS SUMMARY | 2023-08-30 02:46 | External Medical Summary ---
Author Name Unknown Address Unknown Organization K01:[facility] [place] - [address] [place] [address] Laboratory Report Ordering Provider Test Date Status FRANCISCO,DURA 08/28/2023 16:30:39 Final Observation Date Value Abnormality Reference (Units ) Status Vitamin B12 08/28/2023 16:30:39 [phone] (pg/mL) Final Performing Location [facility] - [address] [place] [address]
--- OUTSIDE RECORDS SUMMARY | 2023-08-30 02:46 | External Medical Summary | Summary of Care ---
Author Name Unknown Organization [facility] Address [address] [place] [place] [address] Phone [phone] Care Team Providers Care Peanut Sheller Name Role Phone Gatito Doss MD Primary Care Provider + [phone] Reason for Visit * Reason Onset Date Comments Advice 08/29/2023 High BP Encounter Details Date Type Department Care Team (Late st Contact Info) Description 08/29/2023 Telephone Family Medicine [address] [address] Gatito Doss MD [address] [place] [address] [place] [address] Advice (High BP //) Allergies No [...] Miscellaneous Notes * Telephone Encounter - Gatito Doss MD - 08/29/2023 3:36 PM EST She needs to go to ER I have not seen her in house in over a year. * Telephone Encounter - Elisabeth Wiggins LPN [...] 09/18/2023 09/18/2022, 01/12/2021 CKD PHOS USE SMARTSET 55079 10/09/2023 10/09/2022, 0 04/18/2021 GFR 02/27/2024 08/28/2023, 02/0 03/2023, 03/23/2022, Additional history exists Albumin/Creatinine Ratio 08/28/2024 08/28/2023, 0710/2021 CKD HGB USE SMARTSET 24170 08/28/202408/28, 04/25/2022, 03/23/2022, Additional history exists Lipid [...] filedocumented as of this encounter Care Teams Peanut Sheller Relationship Specialty Start Date End Date Gatito Doss MD [address] [place] [address] [place] [address] PCP - General Family Medicine 07/20/20 documented as of this encounter
--- OUTSIDE RECORDS SUMMARY | 2023-08-30 02:46 | External Medical Summary | Summary of Care ---
Author Name Unknown Organization [facility] Address [address] [facility] [place] [address] Phone [phone] Care Team Providers Care Hotel Registration Clerk Name Role Phone Gatito Doss MD Primary Care Provider [phone] Reason for Visit * Reason Comments Outpatient Testing Encounter Details Date Type Department Care Team (Late st Contact Info) Description 08/28/2023 4:00 PM EST Laboratory Laboratory [address] [place] [phone] [place] [address] Encounter for long-term (current) use of medications Allergies No known active allergiesdocumented as of [...] as of this encounter Plan of Treatment Pending Results Name Type Priority Associated Diagnoses Date /Time ALBUMIN / CREATININE RATIO, URINE Lab Routine Encounter for long-term (current) use of medications 08/28/2023 4:30 PM EST BASIC METABOLIC PANEL Lab Routine Encounter for long-term (current) use of medications 08/28/2023 4:30 PM EST HGB Lab Routine Encounter for long-term (current) use of medications 08/28/2023 4:30 PM EST VITAMIN B12 Lab Routine Encounter for long-term (current) use of medications 08/28/2023 4:30 PM EST MAGNESIUM Lab Routine Encounter for long-term (current) use of medications 08/28/2023 4:30 PM EST Scheduled Procedures Name Priority Associated Diagnoses Date/Ti [...] Additional history exists CKD HGB USE SMARTSET 08301 04/25/202304/25, 03/23/2022, 07/20/2020 COVID-19 Vaccine (2 - season) 2023 04/13/2021 Influenza Vaccine (FLU shot) (#1) 2023 06/23/2021, 07/20/2020 Mammogram 09/18/2023 09/18/2022, 01/12/2021 CKD PHOS USE SMARTSET 30722 10/09/2023 10/09/2022, 0 04/18/2021 Lipid Panel 07/20/2025 [...] as of this encounter Visit Diagnoses Diagnosis Encounter for long-term (current) use of medications Encounter for long-term (current) use of other medications documented in this encounter Care Teams Hotel Registration Clerk Relationship Specialty Start Date End Date Gatito Doss MD [address] [place] [address] [place] [address] PCP - General Family Medicine 07/20/20 documented as of this encounter
--- OUTSIDE RECORDS SUMMARY | 2023-08-30 02:46 | External Medical Summary | Summary of Care ---
Author Name Unknown Organization [facility] Address [address] [facility] [place] [address] Phone [phone] Care Team Providers Care Soil And Plant Scientist Name Role Phone Gatito Doss MD Primary Care Provider + [phone] Reason for Visit * Reason Comments eRx-Medication Refill Encounter Details Date Type Department Care Team Description 05/02/2023 Refill Family Medicine [address] [phone] Gatito Doss MD [address] [place], [place] [address] [address] Benign hypertension with CKD (chronic kidney disease) stage III (HCC); Stage 3a chronic kidney disease (HCC); Primary hypertension Allergies No known active allergiesdocumented as of this encounter (statuses as of 05/03/2023) Medications Medication Sig Dispensed Refills Start Date End Date Status Baclofen 20 MG Oral TabletIndications:Ce rvicalgia Take by mouth 1 Tablet in the morning AND 1 Tablet at noon AND 1 Tablet before bedtime. 30 Tablet 0 01/22/2022 Active Celecoxib 200 MG Oral Capsule (CeleBREX)Indication [...] EVERY MORNING 90 Tablet 1 05/03/2023 Active Lisinopril 10 MG Oral Tablet (Prinivil)Indication s:Benign hypertension with CKD (chronic kidney disease) stage III (HCC),Stage 3a chronic kidney disease (HCC),Primary hypertension TAKE ONE TABLET BY MOUTH IN THE MORNING 90 Tablet 1 10/23/2022 3 Discontinued documented as of this encounter (statuses as of 05/03/2023) Active Problems Problem Noted Date Body mass index (BMI) of 40.0 to 44.9 in adult 02/12/2022 Overview: 214 Benign hypertension with stage 3a chroni c kidney disease 05/15/2021 Overview: Per CKD protocol Primary hypertension 07/20/2020 Stage 3a chronic kidney disease 07/20/20 20 Overview: EGFR 52.6 documented as of this encounter (statuses as of 05/03/2023) Resolved Problems Problem Noted Date Resolved Date BMI 37.0-37.9, adult 07/20/2020 04/25/2022 Overview: 207 Benign hypertension with CKD (chronic kidney disease) stage III 07/20/2020 05/18/2021 Overview: Per CKD protocol documented as of this encounter (statuses as of 05/03/2023) Immunizations Name Administration Dates Next Due Covid-19 [...] encounter Miscellaneous Notes * Telephone Encounter - Tommy Guillaume MD - 05/03/2023 3:26 PM EDT Signed Prescriptions: Disp Refills Lisinopril 10 MG Oral Tablet (Prinivil) 90 Tab*1 Sig: TAKE 1 TABLET BY MOUTH EVERY MORNING Authorizing Provider: TOMMY GUILLAUME * Telephone Encounter - Sabiha Choi [facility] - 05/03/2023 9:50 AM EDTPending Prescriptions: Disp Refills Lisinopril 10 MG Oral Tablet (Prinivil) 90 Tab*1 Sig: TAKE 1 TABLET BY MOUTH EVERY MORNING * Telephone Encounter - Sabiha Choi [facility] - 05/03/2023 9:50 AM EDT Unable to authorize medication refills for pended medication(s) at this time. Part of the protocol criteria used for refill authorization was not satisfied. Patient needs blood pressure on file yearly. Please approve if appropriate. Thanks, Sabiha Choi Clinical Pharmacist Centralized Clinical Pharmacy Services ([facility]PS) (Formerly Telepharmacy) [phone] 05/03/2023, 9:50 AM * Telephone Encounter - Sabiha Choi RPh - 05/03/2023 9:50 AM EDT Did you pend patient's preferred pharmacy and medication before forwarding?yes Pharmacy: [id number] [address] [facility] Pending Prescriptions: Disp Refills Lisinopril 10 MG Oral Tablet (Prinivil) [*90 Tab*1 Sig: TAKE 1 TABLET BY MOUTH EVERY MORNING Last Visit: 04/25/2022 (in office), 10/08/2022 (telemedicine) Next Visit: Visit date not found If no future appointments scheduled, and last appointment is greater than a year ago, please schedule patient for a follow-up appointment Last date the medication was ordered: 10/23/22 Is this request for a controlled substance?No [...] 02:45 PM ALT 12 07/20/2020 10:57 AM documented in this encounter Plan of Treatment [...] Additional history exists CKD HGB USE SMARTSET 94851 04/25/202304/25, 03/23/2022, 07/20/2020 Influenza Vaccine (FLU shot) (#1) 2023 06/23/2021, 07/20/2020 Mammogram 09/18/2023 09/18/2022, 01/12/2021 CKD PHOS USE SMARTSET 39105 10/09/2023 10/09/2022, 0 04/18/2021 Lipid Panel 07/20/2025 [...] as of this encounter Visit Diagnoses Diagnosis Benign hypertension with CKD (chronic kidney disease) stage III (HCC) Benign hypertensive kidney disease with chronic kidney disease stage I through stage IV, or unspecified Stage 3a chronic kidney disease (HCC) Primary hypertension Unspecified essential hypertension documented in this encounter Care Teams Soil And Plant Scientist Relationship Specialty Start Date End Date Gatito Doss MD [address] [place] [address] [place] [address] PCP - General Family Medicine 07/20/20 documented as of this encounter
[2023-08-30] MEDS ORDERED: NITROGLYCERIN SL 0.4 MG/TAB TAB SL PRN (02:47)
[2023-08-30] MEDS ORDERED: OPTIRAY 320 500ml IV ONE (03:10)
[2023-08-30] MEDS: Patient's ALLERGY Info needs ENTERED SCH ×4 (03:28→03:31)
[2023-08-30 04:46] LABS: Basophils # (auto) 0.06 K/uL (0.00-0.20); Basophils % (auto) 0.6 %; Eosinophils # (auto) 0.15 K/uL (0.00-0.50); Eosinophils % (auto) 1.5 %; Hematocrit (blood only) 35.5 % (37.0-47.0); Hemoglobin 10.9 g/dl (12.0-16.0); Immature Granulocytes # (auto) 0.03 K/uL (0.01-0.20); Immature Granulocytes % (auto) 0.3 %; Lymphocytes # (auto) 1.54 K/uL (1.20-3.40); Lymphocytes % (auto) 15.3 %; Mean Corpuscular Hemoglobin 24.8 pg (25.0-34.0); Mean Corpuscular Hgb Conc 30.7 g/dL (32.0-36.0); Mean Corpuscular Volume 80.9 fL (80.0-100.0); Monocytes # (auto) 0.51 K/uL (0.11-0.59); Monocytes % (auto) 5.1 %; Neutrophils # (auto) 7.79 K/uL (1.40-6.50); Neutrophils % (auto) 77.2 %; Platelet Count 421 K/uL (130-400); RDW Coefficient of Variation 14.7 % (11.5-14.5); Red Blood Count 4.39 M/uL (4.20-5.40); White Blood Count 10.08 K/ul (4.8-10.8)
[2023-08-30 05:04] LABS: BUN Creatinine Ratio 17.9 (10-20); Calcium 8.5 mg/dl (8.6-10.3); Creatinine Clr Calc Pharmacy 91.8 ml/min; Est GFR (African American) 106.9 ml/min; Est GFR (Non-African American) 92.2 ml/min; Potassium 3.1 mmol/L (3.5-5.1)
[2023-08-30 05:11] LABS: Troponin I High Sensitivity 5.4 pg/ml (0-14)
[2023-08-30] MEDS ORDERED: Nursing to Pharmacy Communication SCH (05:45)
--- NOTE | 2023-08-30 08:26 | CT Scan Report ---
CT SCAN OF THE ABDOMEN AND PELVIS WITH IV CONTRAST CLINICAL HISTORY: Generalized abdominal pain. COMPARISON STUDY: No priors. TECHNIQUE: Following the IV administration of 84 cc of Optiray 320, CT scan of the abdomen and pelvi s is performed from the lung bases to the proximal femora. Images are reviewed in the axial, sagittal , and coronal planes. IV contrast was administered without complication. A dose lowering technique wa s utilized adhering to the principles of ALARA. CT DOSE: 1346.26 mGy.cm FINDINGS: Lung bases: The heart is normal in size and without pericardial effusion. The lung bases are clear. T here is a moderate to large hiatal hernia. Liver: The contrast-enhanced liver is normal in size, contour, and attenuation. There is no intrahepa tic biliary ductal dilatation. The hepatic veins and portal veins are patent. Gallbladder: Unremarkable. Spleen: Normal in size and attenuation. Pancreas: Unremarkable. Adrenal glands: Unremarkable. Kidneys: The contrast enhanced kidneys are normal in size. 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 There is likely a 4 mm calculus a long the course of the distal left ureter seen on image #286. A distal ureteral stone is not excluded . There is mild fullness of the left upper pole collecting system. Cortical scarring is seen in the l eft upper pole. There are at least 6 nonobstructing calculi in the left upper pole moiety which measu re up to 6 mm. No right renal calculi are identified on this contrast-enhanced examination. The kidne ys enhance symmetrically. There is moderate right hydronephrosis. The right ureter is normal in calib er, with no obstructing stone or lesion seen. Abdominal vasculature: The abdominal aorta is normal in course and caliber noting scattered foci of a therosclerotic calcification. Bowel: There is mild sigmoid diverticulosis without CT evidence of acute diverticulitis. No bowel obs truction is seen. Moderate fecal attention is noted in the right colon. The appendix is well-visuali zed and normal. Peritoneum: There is no intraperitoneal free air or abdominal ascites. There is a fat-containing umbi lical hernia. Lymphadenopathy: None. Pelvic viscera: The bladder is normal as visualized. There is a heterogeneously enhancing left adnexa l mass seen on image #279. This measures 4.3 x 6.2 x 4.6 cm and appears to arise from the left aspect of the uterine body. This favors a pedunculated fibroid, and this is remote from the left ovary. The ovaries are normal as visualized. Skeletal structures: There is mild sclerotic change noted in the sacroiliac joints. No lytic or blast ic lesions are seen. IMPRESSION: 1. 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 Numerous nonobstructing calculi are seen in the upper pole. 2. A 4 mm calculus is seen along the course of the distal left ureter. This is difficult to localize and a distal ureteral stone is not excluded. Correlate with clinical findings and urinalysis. 3. There is fullness of the left upper pole renal collecting system. There is also moderate hydroneph rosis on the right. 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 Follow-up with urology is recommended. 4. A 6.2 cm heterogeneously enhancing left adnexal mass closely approximates the uterus and this like ly represents a pedunculated fibroid. This is remote from the left ovary. Nonemergent pelvic ultrasou nd is recommended for further assessment. 5. Sigmoid diverticulosis without CT evidence of acute diverticulitis. 6. Moderate to large hiatal hernia. 7. Additional findings as above. ACT 112: Negative or not required by law. Electronically signed by: Merrill Davis M.D. 08/30/2023 8:25 AM
[2023-08-30] MEDS ORDERED: PNEUMOCOCCAL VACCINE (PCV20) 20-VAL CONJ-DIP CRM/PF 0.5 ML SYR IM ONE (09:00)
--- NOTE | 2023-08-30 10:17 | Cardiology Consultation ---
Date of Consultation August 30, 2023 Assessment & Plan (1) Hypertensive urgency: (2) Headache: (3) Hypokalemia: (4) History of recent dental procedure: Plan Hypertensive urgency. + LVH on TTE. Nonpharmacologic and pharmacologic treatment of hypertension discussed. Lisinopril increased from 10 mg/day to 20 mg/day on admission. Add carvedilol. Add spironolactone 25 mg/day noting hypokalemia and hypertension. Discontinue Celebrex. Avoid NSAIDs if possible. History of rheumatic fever without history of rheumatid heart disease. TTE OK, normal to hyperdynamic LV systolic function, EF 65 to 70%, mild concentric left ventricular hypertrophy, no significant valvular pathology Recent dental work. Subjective chills. Check blood cultures. Atherosclerotic calcification. Recommend addition of aspirin and statin therapy. Hypokalemia. Supplement potassium orally and add spironolactone as above Anemia. Indices suggestive of iron deficiency. Check iron studies. Recommend evaluation for underlying cause. Moderate to large hiatal hernia. Continue PPI. 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 As per Hospitalist and Urology. Supervising Physician Co-Signing Physician Notes 63-year-old female seen and examined at the bedside. Presented to the emergency department with headache, chest discomfort, and elevated blood pressure. Other symptoms include abdominal discomfort, and nausea. Lab studies demonstrating hypokalemia and microcytic anemia. Currently patient feeling better. Hide headache improved. Blood pressure initially 231/104 now down to 161/85. Treated with IV hydralazine and lorazepam in ER. PE: Hypertensive. Gen: NAD, AAO x3. Heart: Regular rhythm, normal S1-S2. No murmur. Lungs: Clear bilateral, no rales, rhonchi, wheeze. Extremities: No edema. Neuro: No focal deficit. A/P: Agree with PA-C history, physical examine findings, assessment and plan. Blood pressure trending downward with addition of IV hydralazine, oral lisinopril, and Aldactone. Initiate beta-cristina with carvedilol 3.125 mg twice daily. First dose this evening. No evidence of acute coronary syndrome. Results of echocardiogram discussed demonstrating hypertensive heart disease. Outpatient stress testing when blood pressure controlled. History of Present Illness Reason for Consultation: Hypertensive urgency Requesting Physician: Dr. West Attending Physician: Dr. Tuttle History of Present Illness Mrs. Yuly Watson is a very pleasant 63-year-old female who was in her usual state of health until approximately 4 weeks ago. At that time she had a wisdom tooth pulled. She recalls the doctor stating that there was a little bit of infection there however she was not prescribed an antibiotic. Since that time she notes that her stomach has been "all messed up." She describes having diarrhea for couple days and then being constipated for couple days. She notes that she is typically very regular and does not require anything. She notes nausea, being gassy, and having discomfort in the lower abdomen. She went to see her PCP et al the day before yesterday and was prescribed Augmentin for possible diverticulitis. At that time her blood pressure was noted to be markedly elevated though improved throughout the visit and she was advised to monitor her blood pressure at home. The next morning she noted a blood pressure of 210/110 and was referred to the ER by her PCP. She notes having a headache and continuing to feel nauseated. She typically drinks 1 or 2 cups of coffee in the morning and has not had any the last 2 days. She has not had anything to eat since prior to arrival. She denies chest pain. No palpitations. No pleuritic pain. No difficulty breathing. No orthopnea or PND. No lower extremity peripheral edema. No abr upt weight gain. No fevers though she describes having chills off and on and trouble regulating the heat in her body. No rash. She notes having history of rheumatic fever couple of times as a child and is chronically prescribed Celebrex for swelling in her joints. She notes that her blood pressure typically runs 140/60 at home while on lisinopril 10 mg/day. Past Medical and Surgical History: Hypertension Chart history of stage III chronic kidney disease Elevated BMI Rheumatic fever GERD Arthroscopic right knee surgery Tubal ligation Right breast biopsy Family History: Mother has atrial fibrillation, alive and well. Father is without cardiac issues. 1 brother with CAD status post CABG. Another brother with CAD, details unknown Social History no tobacco. Rare alcohol, 1-2 drinks per year. No illegal drug use. 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 Allergies Allergy/AdvReac Type Severity Reaction Status Date / Time No Known Drug Allergies Allergy Unknown Verified 08/30/23 03:22 Home Medications Medication Instructions Recorded Confirmed Type amoxicillin 875 mg-potassium 1 tab PO BID 08/30/23 08/30/23 History clavulanate 125 mg tablet lisinopril 10 mg tablet 10 mg PO DAILY 08/30/23 08/30/23 History omeprazole 20 mg capsule,delayed 20 mg PO DAILY 08/30/23 08/30/23 History release Patient History Social History Smoking Status: Never smoker Hx Alcohol Use: Yes Hx Substance Use: No Preferred Language: [place] Islander Communication Ability: Effective Doctorate [employer] Chiropractic Required: No Beliefs That Will Affect Care: None Current Living Situation: Spouse Feels Safe at Home: Yes Review of Systems Review of Systems: Complete Review of Systems: Constitutional: + Chills. No fevers. No rash. No abrupt change in weight. Notes previously taking/needing supplemental potassium, discontinued when she moved here due to renal concerns for fci use. HEENT: No amaurosis fugax. No blurred vision. No double vision. No recent visual changes. Pulmonary: No history of COPD or asthma. Cardiac: No prior cardiac history. GI/Abd: See above. No melena or hematochezia. Heartburn controlled on omeprazole. No liver problems. Vascular: No history of carotid artery disease, AAA, or PAD. Hematologic: + Anemia. Musculoskeletal: Swelling of the joints, on Celebrex daily Skin: No rash. Neurologic: No history of TIA or CVA. Female : See above. Endocrine: No history of DM or thyroid problems. Complete Review of Systems is as stated above, negative, or noncontributory. Physical Exam Physical Exam: General: A&Ox3. NAD. Elevated BMI. HENT: Normocephalic. Atraumatic. Eyes: PER. Conjunctiva pink, sclera clear. Neck: No carotid bruits. No JVD. Heart: Regular at 90 bpm. No murmur. No rub. No gallop. Lungs: Clear to auscultation. Abdomen: +BS. Soft. Nontender. No masses or organomegaly. Extremities: No clubbing, cyanosis, or edema. Limited neurological examination is without focal deficits. Pulses: radial=2/4, posterior tibial=2/4. Results & Data Vital Signs (Past 12 Hours) Vital Signs Pulse Pulse Resp BP Pulse Ox Pulse Ox O2 Del Method 08/30/23 08:04 89 21 161/85 H 95 Room Air 08/30/23 07:03 100 H 08/30/23 03:18 102 H 20 181/83 H 97 Room Air 08/30/23 03:17 96 08/30/23 02:33 96 H 18 180/97 H 98 Room Air 08/30/23 01:47 91 H 08/30/23 01:00 91 H 18 176/98 H 96 Room Air 08/29/23 23:00 79 18 170/114 H 96 Room Air O2 Del Method 08/30/23 08:04 08/30/23 07:03 08/30/23 03:18 08/30/23 03:17 Room Air 08/30/23 02:33 08/30/23 01:47 08/30/23 01:00 08/29/23 23:00 Laboratory Results Cardiac Enzymes 08/29/23 08/29/23 08/30/23 Range/Units 18:00 22:27 04:12 AST 11 L (13-39) U/L Troponin I High Sens 6.3 3.6 5.4 (0-14) pg/ml CBC 08/29/23 08/30/23 Range/Units 18:00 04:12 WBC 9.21 10.08 (4.8-10.8) K/ul RBC 4.51 4.39 (4.20-5.40) M/uL Hgb 11.4 L 10.9 L (12.0-16.0) g/dl Hct 35.9 L 35.5 L (37.0-47.0) % Plt Count 496 H 421 H (130-400) K/uL Neut # (Auto) 5.98 7.79 H (1.40-6.50) K/uL Lymph # (Auto) 2.34 1.54 (1.20-3.40) K/uL [place] # (Auto) 0.59 0.51 (0.11-0.59) K/uL Eos # (Auto) 0.21 0.15 (0.00-0.50) K/uL Baso # (Auto) 0.07 0.06 (0.00-0.20) K/uL Comprehensive Metabolic Panel 08/29/23 08/30/23 Range/Units 18:00 04:12 Sodium 140 140 (136-145) mmol/L Potassium 3.4 L 3.1 L (3.5-5.1) mmol/L Chloride 105 106 (98-107) mmol/L Carbon Dioxide 28 25 (21-32) mmol/L BUN 18 12 (6-23) mg/dl Creatinine 0.91 0.67 (0.6-1.2) mg/dl Glucose 93 95 (70-99(Fasting)) mg/dl Calcium 8.9 8.5 L (8.6-10.3) mg/dl AST 11 L (13-39) U/L ALT 13 (7-52) U/L Alkaline Phosphatase 108 H (34-104) U/L Total Protein 7.5 (6.0-8.3) gm/dl Albumin 4.1 (3.4-5.0) gm/dl Intake and Output 08/29/23 08/30/23 08/30/23 22:59 06:59 14:59 Intake Total 500 / 500 Balance 500 / 500 Intake: IV 500 / 500 Sodium Chloride 0.9% 500 ml @ 500 / 500 999 mls/hr IV .Q31M ONE Rx#: [id number] Other: # Unmeasured Voids 1 Weight 95 kg 95 kg Weight Measurement Method Chair Scale [facility] Diagnostic Findings Data: EKG on presentation revealed normal sinus rhythm at 67 bpm with voltage criteria for LVH. Cannot rule out an old anterior infarct. QTc 464 ms. Continuous monitoring specialist reveals sinus/sinus tachycardia. Current heart rate is 96 bpm. Resting echocardiography on August 30, 2023 Resting echocardiography on August 30, 2023 revealed normal to hyperdynamic LV systolic function, EF 65 to 70% with mild concentric left ventricular hypertrophy. No significant valvular pathology observed High-sensitivity troponin negative x 3 at 6.3 then 3.6 then 5.4 pg/mL Chest x-ray: No acute process Head CT: No evidence of acute intracranial pathology CT abdomen/pelvis: Reviewed. Lung bases: The heart is normal in size and without pericardial effusion. The lung bases are clear. There is a moderate to large hiatal hernia. Liver: The contrast-enhanced liver is normal in size, contour, and attenuation. There is no intrahepatic biliary ductal dilatation. The hepatic veins and portal veins are patent. Gallbladder: Unremarkable. Spleen: Normal in size and attenuation. Pancreas: Unremarkable. Adrenal glands: Unremarkable. Kidneys: The contrast enhanced kidneys are normal in size. 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 There is likely a 4 mm calculus along the course of the distal left ureter seen on image #286. A distal ureteral stone is not excluded. There is mild fullness of the left upper pole collecting system. Cortical scarring is seen in the left upper pole. There are at least 6 nonobstructing calculi in the left upper pole moiety which measure up to 6 mm. No right renal calculi are identified on this contrast-enhanced examination. The kidneys enhance symmetrically. There is moderate right hydronephrosis. The right ureter is normal in caliber, with no obstructing stone or lesion seen. Abdominal vasculature: The abdominal aorta is normal in course and caliber noting scattered foci of atherosclerotic calcification. Bowel: There is mild sigmoid diverticulosis without CT evidence of acute diverticulitis. No bowel obstruction is seen. Moderate fecal attention is noted in the right colon. The appendix is well-visualized and normal. Peritoneum: There is no intraperitoneal free air or abdominal ascites. There is a fat-containing umbilical hernia. Lymphadenopathy: None. Pelvic viscera: The bladder is normal as visualized. There is a heterogeneously enhancing left adnexal mass seen on image #279. This measures 4.3 x 6.2 x 4.6 cm and appears to arise from the left aspect of the uterine body. This favors a pedunculated fibroid, and this is remote from the left ovary. The ovaries are normal as visualized. Skeletal structures: There is mild sclerotic change noted in the sacroiliac joints. No lytic or blastic lesions are seen.
[2023-08-30] MEDS ORDERED: POTASSIUM CHLORIDE CRTAB 20 MEQ TABCR PO ONE (10:44)
[2023-08-30] MEDS: lisinopril 20 MG TAB PO SCH (10:56)
[2023-08-30] MEDS: AMOXICILLIN/CLAVULANATE 875 MG TAB PO SCH ×2 (10:57→23:11)
[2023-08-30] MEDS: PANTOprazole 40 MG TAB PO SCH (10:57)
[2023-08-30] MEDS: ENOXAPARIN INJ 40 MG/0.4 ML SYR SQ SCH (10:58)
--- NOTE | 2023-08-30 11:06 | Electrocardiogram Report ---
Test Reason : Blood Pressure : / mmHG Vent. Rate : 067 BPM Atrial Rate : 067 BPM P-R Int : 158 ms QRS Dur : 072 ms QT Int : 440 ms P-R-T Axes : 044 001 036 degrees QTc Int : 464 ms Normal sinus rhythm Minimal voltage criteria for LVH, may be normal variant Nonspecific ST abnormality Abnormal ECG No previous ECGs available Confirmed by David Mcmahon ([id number]) on 08/30/2023 11:06:10 AM Referred By: REFERRED SELF Confirmed By:Jose Mcmahon
[2023-08-30] MEDS: SPIRONOLACTONE 25 MG TAB PO SCH (11:48)
[2023-08-30] MEDS: ACETAMINOPHEN 325 MG TAB PO PRN ×2 (13:53→19:47)
--- NOTE | 2023-08-30 14:23 | Urology Consultation ---
Date of Consultation August 30, 2023 Assessment & Plan (1) Obstruction of right ureteropelvic junction (UPJ): (2) Duplicated left renal collecting system: (3) Left ureteral calculus: Plan 63-year-old female who was admitted due to hypertensive emergency. CT scan was performed which showed a duplicated left ureteral system with mild left upper pole hydronephrosis and a distal left ureteral calculus. Her right kidney showed mild hydronephrosis with no obvious obstruction and is likely a chronic UPJ. Patient is asymptomatic currently from her left ureteral calculus. There is no concern for infection and her kidney function is stable so no indication for stent placement. Recommend medical expulsive therapy with Flomax. She can continue having a diet. No plans for surgery this hospitalization Discussed patient's right UPJ obstruction and duplicated left ureter. Neither of these require any immediate attention. She likely has had a right UPJ since . Urology has sent a message to schedule outpatient follow-up with a repeat CT scan to ensure passage of her stone. Indications to return to the hospital regarding kidney stone were reviewed with the patient. Urology to sign off History of Present Illness Attending Physician: Carlyn Tuttle MD History of Present Illness 63-year-old female who was admitted due to hypertensive emergency. CT scan was performed which showed a duplicated left ureteral system with mild left upper pole hydronephrosis and a distal left ureteral calculus. Her right kidney showed mild hydronephrosis with no obvious obstruction and is likely a chronic UPJ. Afebrile with stable vitals outside of hypertension. Labs showed a white blood cell count of 10.08, creatinine of 0.67 and a urinalysis that was negative. Patient denies any current left or right flank pain. She does report intermittent left flank pain over the past week. She has no previous history of kidney stones. She has never seen a urologist before. Allergies Allergy/AdvReac Type Severity Reaction Status Date / Time No Known Drug Allergies Allergy Unknown Verified 08/30/23 03:22 Home Medications Medication Instructions Recorded Confirmed Type amoxicillin 875 mg-potassium 1 tab PO BID 08/30/23 08/30/23 History clavulanate 125 mg tablet lisinopril 10 mg tablet 10 mg PO DAILY 08/30/23 08/30/23 History omeprazole 20 mg capsule,delayed 20 mg PO DAILY 08/30/23 08/30/23 History release Patient History Social History Smoking Status: Never smoker Hx Alcohol Use: Yes Hx Substance Use: No Preferred Language: Indonesian Communication Ability: Effective Flame Gouger Required: No Beliefs That Will Affect Care: None Current Living Situation: Spouse Feels Safe at Home: Yes Safety Concerns: Feels Safe At This Time Review of Systems Review of Systems: 14 point review of systems negative outs luis of what is listed above in HPI Physical Exam Physical Exam: General: Alert and oriented, no acute distress HEENT: Normocephalic, mucous membranes moist Pulmonary: Nonlabored respirations Abdomen: Nondistended Extremities: Moves all 4 spontaneously Neuro: No gross deficits Skin: Warm, dry, no rashes noted Results & Data Vital Signs (Past 12 Hours) Vital Signs Pulse Pulse Resp BP Pulse Ox Pulse Ox O2 Del Method 08/30/23 08:04 89 21 161/85 H 95 Room Air 08/30/23 07:03 100 H 08/30/23 03:18 102 H 20 181/83 H 97 Room Air 08/30/23 03:17 96 08/30/23 02:33 96 H 18 180/97 H 98 Room Air O2 Del Method 08/30/23 08:04 08/30/23 07:03 08/30/23 03:18 08/30/23 03:17 Room Air 08/30/23 02:33 PG Care Time/CCT Total # of Minutes Spent Total Time Spent with Patient: Total time spent is greater than 50% in coordination of care (as documented) at patient's floor/unit and/or counseling patient: Coding Level of Care Code 07534 INT INP/OBS CARE 2/55MIN Diagnoses Obstruction of right ureteropelvic junction (UPJ) N13.5 Duplicated left renal collecting system Q62.5 Left ureteral calculus N20.1
--- NOTE | 2023-08-30 15:33 | Ultrasound Report ---
US pelvic complete CLINICAL HISTORY: pednuclated fibroid TECHNIQUE: Real-time sonographic images of the pelvic contents were obtained with transabdominal and transvaginal technique. Comparison: Comparison is made to CT abdomen pelvis 08/30/2023 FINDINGS: The uterus measures 6.5 x 3.8 x 5.6 cm. The endometrial cavity echo stripe measures 0.5 cm in thickne ss. There is a exophytic lesion compatible with pedunculated fibroid measuring 4.0 x 4.7 x 4.4 cm. The right ovary was not visualized. The left ovary measures 2.4 x 1.7 x 1.8 cm. Normal appearance of the ovaries bilaterally. There was no fluid in the cul-de-sac. IMPRESSION: Findings are again suggestive of exophytic fibroid measuring approximately 4.5 cm. ACT 112: Negative or not required by law. Electronically signed by: Flaco Bean M.D. 08/30/2023 3:32 PM
[2023-08-30] MEDS: carvediloL 3.125 MG TAB PO SCH (19:46)
--- NOTE | 2023-08-30 21:31 | Communication Note ---
Date of Service: August 30, 2023 Pt seen while still waiting for a bed in the ED. Denied acute concerns at that time. BP was better controlled. Seen by Urology- recommending Flomax to aid in stone expulsion. No inpatient procedure. Seen by Cardiology- appreciate recs and HTN management. Pelvic US completed- confirms pedunculated fibroid, consider [employer] ASSISTANT consult. CT abd/pelvis with no documented diverticulitis, consider d/c of Augmentin. For more information, please see H & P from the same date.
[2023-08-31] MEDS: LABETALOL HCL IV 5 MG/ML 20ML IV PRN ×2 (00:45→22:18)
[2023-08-31] MEDS ORDERED: Nursing to Pharmacy Communication SCH (01:00)
[2023-08-31] MEDS: ACETAMINOPHEN 325 MG TAB PO PRN (04:11)
[2023-08-31 05:38] LABS: Albumin Globulin Ratio 1.2 (0.9-2); Albumin Level 3.7 gm/dl (3.4-5.0); BUN Creatinine Ratio 16.7 (10-20); Bilirubin,Total 0.4 mg/dl (0.2-1.0); Calcium 8.8 mg/dl (8.6-10.3); Creatinine Clr Calc Pharmacy 78.8 ml/min; Est GFR (African American) 92.5 ml/min; Est GFR (Non-African American) 79.8 ml/min; Magnesium 2.2 mg/dl (1.7-2.4); Phosphorus 3.8 mg/dl (2.5-4.9); Potassium 3.2 mmol/L (3.5-5.1); Total Protein 6.7 gm/dl (6.0-8.3)
[2023-08-31 05:49] LABS: Basophils # (auto) 0.05 K/uL (0.00-0.20); Basophils % (auto) 0.6 %; Eosinophils # (auto) 0.15 K/uL (0.00-0.50); Eosinophils % (auto) 1.9 %; Hematocrit (blood only) 33.8 % (37.0-47.0); Hemoglobin 10.6 g/dl (12.0-16.0); Immature Granulocytes # (auto) 0.02 K/uL (0.01-0.20); Immature Granulocytes % (auto) 0.3 %; Lymphocytes # (auto) 2.15 K/uL (1.20-3.40); Lymphocytes % (auto) 27.8 %; Mean Corpuscular Hemoglobin 25.1 pg (25.0-34.0); Mean Corpuscular Hgb Conc 31.4 g/dL (32.0-36.0); Mean Corpuscular Volume 79.9 fL (80.0-100.0); Mean Platelet Volume 10.2 fL (9.4-12.4); Monocytes % (auto) 7.8 %; Neutrophils # (auto) 4.76 K/uL (1.40-6.50); Neutrophils % (auto) 61.6 %; Platelet Count 449 K/uL (130-400); RDW Coefficient of Variation 14.9 % (11.5-14.5); RDW Standard Deviation 43.3 fL (36.4-46.3); Red Blood Count 4.23 M/uL (4.20-5.40); White Blood Count 7.73 K/ul (4.8-10.8)
[2023-08-31] MEDS: AMOXICILLIN/CLAVULANATE 875 MG TAB PO SCH ×2 (08:25→20:10)
[2023-08-31] MEDS: SPIRONOLACTONE 25 MG TAB PO SCH (08:25)
[2023-08-31] MEDS: TAMSULOSIN HCL 0.4 MG CAP PO SCH (08:25)
[2023-08-31] MEDS: ENOXAPARIN INJ 40 MG/0.4 ML SYR SQ SCH (08:25)
[2023-08-31] MEDS: carvediloL 3.125 MG TAB PO SCH (08:25)
[2023-08-31] MEDS: PANTOprazole 40 MG TAB PO SCH (08:26)
[2023-08-31] MEDS: lisinopril 20 MG TAB PO SCH (08:26)
[2023-08-31] MEDS ORDERED: POTASSIUM CHLORIDE CRTAB 20 MEQ TABCR PO STA (10:27)
[2023-08-31] MEDS ORDERED: carvediloL 3.125 MG TAB PO ONE (10:33)
[2023-08-31] MEDS ORDERED: amLODIPine BESYLATE 5 MG TAB PO ONE (10:35)
--- NOTE | 2023-08-31 12:17 | Cardiology Progress Note ---
Date of Service August 31, 2023 Assessment & Plan (1) Hypertensive urgency: (2) Headache: (3) Hypokalemia: (4) History of recent dental procedure: (5) Iron deficiency anemia: Plan Hypertensive urgency. + LVH on TTE. Nonpharmacologic and pharmacologic treatment of hypertension discussed. Lisinopril increased from 10 mg/day to 20 mg/day on admission. Add carvedilol. Add spironolactone 25 mg/day noting hypokalemia and hypertension. Discontinue Celebrex. Avoid NSAIDs if possible. History of rheumatic fever without history of rheumatid heart disease. TTE OK, normal to hyperdynamic LV systolic function, EF 65 to 70%, mild concentric left ventricular hypertrophy, no significant valvular pathology Recent dental work. Subjective chills. Check blood cultures. Atherosclerotic calcification. Recommend addition of aspirin and statin therapy. Hypokalemia. Supplement potassium orally and add spironolactone as above Anemia. Indices suggestive of iron deficiency. Check iron studies. Recommend evaluation for underlying cause. Moderate to large hiatal hernia. Continue PPI. 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 As per Hospitalist and Urology. 08/31/2023 Persistent hypertension still present but trending towards better control. Will increase carvedilol to 6.25 mg twice per day Add amlodipine 5 mg now then every evening Continue prior therapies Cardiac status stable to improved, expect blood pressure to improve on current adjustment Long-term management includes weight loss and sodium restriction, daily exercise Admission and Anticipated Discharge Date Admission Date: August 30, 2023 Subjective Patient seen and examined, chart, medications, telemetry reviewed Still with headache, elevated blood pressures overnight No chest pain, shortness of breath, tachypalpitations. No arrhythmias on telemetry Review of Systems Review of Systems: All systems reviewed & are unremarkable except as noted in Subjective Physical Exam Physical Exam: General: A&Ox3. NAD. Elevated BMI. HENT: Normocephalic. Atraumatic. Eyes: PER. Conjunctiva pink, sclera clear. Neck: No carotid bruits. No JVD. Heart: Regular at 82 bpm. No murmur. No rub. No gallop. Lungs: Clear to auscultation. Abdomen: +BS. Soft. Nontender. No masses or organomegaly. Extremities: No clubbing, cyanosis, or edema. Limited neurological examination is without focal deficits. Pulses: radial=2/4, posterior tibial=2/4. Results & Data Vital Signs (Past 12 Hours) Vital Signs Pulse Resp BP Pulse Ox Pulse Ox O2 Del Method 08/31/23 12:00 77 24 95 08/31/23 12:00 145/86 H 08/31/23 11:02 84 15 96 08/31/23 11:02 180/74 H 08/31/23 11:00 81 19 93 08/31/23 10:00 90 15 94 08/31/23 10:00 163/78 H 08/31/23 09:01 79 20 96 08/31/23 09:01 168/132 H 08/31/23 09:00 83 16 92 08/31/23 08:31 72 08/31/23 08:00 82 24 95 08/31/23 08:00 183/109 H 08/31/23 07:01 72 21 94 08/31/23 07:01 170/99 H 08/31/23 07:00 95 H 15 96 08/31/23 06:00 80 22 153/86 H 95 08/31/23 05:00 76 20 157/77 H 95 08/31/23 04:00 103 H 19 157/118 H 94 08/31/23 03:01 76 28 H 166/92 H 97 08/31/23 03:00 101 H 19 88 L 08/31/23 03:00 95 Room Air 08/31/23 02:00 102 H 20 89 L 08/31/23 01:15 76 22 167/97 H 95 08/31/23 01:10 74 145/84 H 08/31/23 01:00 78 16 145/84 H 96 08/31/23 00:57 73 18 151/105 H 94 08/31/23 00:45 82 18 184/99 H 96 08/31/23 00:45 79 184/99 H 08/31/23 00:42 81 12 93 08/31/23 00:30 80 13 205/90 H 93 Laboratory Results Laboratory Results - last 24 hr 08/30/23 08/31/23 04:12 04:15 WBC 7.73 RBC 4.23 Hgb 10.6 L Hct 33.8 L MCV 79.9 L MCH 25.1 MCHC 31.4 L RDW Std Deviation 43.3 RDW Coeff of Bonnie 14.9 H Plt Count 449 H MPV 10.2 Immature Gran % (Auto) 0.3 Neut % (Auto) 61.6 Lymph % (Auto) 27.8 [place] % (Auto) 7.8 Eos % (Auto) 1.9 Baso % (Auto) 0.6 Neut # (Auto) 4.76 Lymph # (Auto) 2.15 [place] # (Auto) 0.60 H Eos # (Auto) 0.15 Baso # (Auto) 0.05 Immature Gran # (Auto) 0.02 Sodium 140 Potassium 3.2 L Chloride 105 Carbon Dioxide 25 Anion Gap 10 BUN 13 Creatinine 0.78 Est Cr Clr Drug Dosing 78.8 Est GFR ( Amer) 92.5 Est GFR (Non-Af Amer) 79.8 BUN/Creatinine Ratio 16.7 Glucose 91 Calcium 8.8 Ionized Calcium 1.09 L Phosphorus 3.8 Magnesium 2.2 Total Bilirubin 0.4 AST 11 L ALT 10 Alkaline Phosphatase 96 Total Protein 6.7 Albumin 3.7 Globulin 3.0 Albumin/Globulin Ratio 1.2 Hepatitis C Ab (EIA) NON-REACTIVE
--- NOTE | 2023-08-31 18:11 | Hospitalist Progress Note ---
Date of Service August 31, 2023 Assessment & Plan (1) Hypertensive urgency: Plan: Pt is a 62yoF with PMHx significant for hypertension, obesity, stage III kidney disease admitted with hypertensive urgency. Hypertensive urgency BPs significantly elevated on admission 231/104 Received IV hydralazine in the ER Placed on IV labetalol as needed Cardiology consulted, managing meds. 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 Denied acute concerns. Wanted her diet advanced as she stated that she threw up only once but has not since. Review of Systems Review of Systems: All systems reviewed & are unremarkable except as noted in Subjective Physical Exam Physical Exam: General: Alert, oriented. No acute distress Skin: No noted rashes or bruises Psych: Appropriate mood and affect Neuro: No gross deficits while sitting in bed HEENT: NC/AT CV: RRR, Resp: Breath sounds clear bilaterally, no increased effort of breathing. Abdomen:soft, nontender at time of exam Extremities: No edema in lower extremities bilaterally. Results & Data Results & Data Vital Signs (Past 12 Hours) Vital Signs Temp Pulse Pulse Resp BP BP Pulse Ox 08/31/23 15:50 37.1 C 81 18 152/94 H 93 08/31/23 15:43 83 08/31/23 15:16 36.8 C 88 16 147/75 H 98 08/31/23 13:00 148/84 H 08/31/23 13:00 82 16 94 08/31/23 12:00 77 24 95 08/31/23 12:00 145/86 H 08/31/23 11:02 84 15 96 08/31/23 11:02 180/74 H 08/31/23 11:00 81 19 93 08/31/23 10:00 90 15 94 08/31/23 10:00 163/78 H 08/31/23 09:01 79 20 96 08/31/23 09:01 168/132 H 08/31/23 09:00 83 16 92 08/31/23 08:31 72 08/31/23 08:00 82 24 95 08/31/23 08:00 183/109 H 08/31/23 07:01 72 21 94 08/31/23 07:01 170/99 H 08/31/23 07:00 95 H 15 96 O2 Del Method 08/31/23 15:50 Room Air 08/31/23 15:43 08/31/23 15:16 Room Air 08/31/23 13:00 08/31/23 13:00 08/31/23 12:00 08/31/23 12:00 08/31/23 11:02 08/31/23 11:02 08/31/23 11:00 08/31/23 10:00 08/31/23 10:00 08/31/23 09:01 08/31/23 09:01 08/31/23 09:00 08/31/23 08:31 08/31/23 08:00 08/31/23 08:00 08/31/23 07:01 08/31/23 07:01 08/31/23 07:00
[2023-08-31] MEDS: carvediloL 6.25 MG TAB PO SCH (18:26)
[2023-08-31] MEDS ORDERED: amLODIPine BESYLATE 5 MG TAB PO SCH (21:00)
[2023-09-01 07:37] LABS: Basophils # (auto) 0.08 K/uL (0.00-0.20); Eosinophils # (auto) 0.23 K/uL (0.00-0.50); Eosinophils % (auto) 2.8 %; Hematocrit (blood only) 35.4 % (37.0-47.0); Hemoglobin 10.9 g/dl (12.0-16.0); Immature Granulocytes # (auto) 0.01 K/uL (0.01-0.20); Immature Granulocytes % (auto) 0.1 %; Lymphocytes # (auto) 2.05 K/uL (1.20-3.40); Lymphocytes % (auto) 24.7 %; Mean Corpuscular Hemoglobin 24.7 pg (25.0-34.0); Mean Corpuscular Hgb Conc 30.8 g/dL (32.0-36.0); Mean Corpuscular Volume 80.1 fL (80.0-100.0); Mean Platelet Volume 9.9 fL (9.4-12.4); Monocytes # (auto) 0.58 K/uL (0.11-0.59); Neutrophils # (auto) 5.35 K/uL (1.40-6.50); Neutrophils % (auto) 64.4 %; Platelet Count 430 K/uL (130-400); RDW Coefficient of Variation 14.7 % (11.5-14.5); RDW Standard Deviation 43.1 fL (36.4-46.3); Red Blood Count 4.42 M/uL (4.20-5.40)
[2023-09-01 07:55] LABS: BUN Creatinine Ratio 20.7 (10-20); Calcium 8.5 mg/dl (8.6-10.3); Est GFR (Non-African American) 75.1 ml/min; Potassium 3.7 mmol/L (3.5-5.1)
[2023-09-01] MEDS: ACETAMINOPHEN 325 MG TAB PO PRN (09:34)
[2023-09-01] MEDS: AMOXICILLIN/CLAVULANATE 875 MG TAB PO SCH (10:15)
[2023-09-01] MEDS: carvediloL 6.25 MG TAB PO SCH (10:15)
[2023-09-01] MEDS: ENOXAPARIN INJ 40 MG/0.4 ML SYR SQ SCH (10:15)
[2023-09-01] MEDS: PANTOprazole 40 MG TAB PO SCH (10:16)
[2023-09-01] MEDS: SPIRONOLACTONE 25 MG TAB PO SCH (10:16)
[2023-09-01] MEDS: lisinopril 20 MG TAB PO SCH (10:16)
[2023-09-01] MEDS: TAMSULOSIN HCL 0.4 MG CAP PO SCH (10:17)
--- NOTE | 2023-09-01 11:28 | Discharge Summary ---
Discharge Summary Date of Service September 01, 2023 Admission HPI Per Admitting Provider 62-year-old female with past med history significant for hypertension, obesity, stage III kidney disease presents with hypertensive urgency. Patient went to PCPs office yesterday for abdominal discomfort thought could be diverticulitis and prescribed Augmentin. Her blood pressure was high there. But it seemed to get better. But advised to come to the ER if gets elevated. Blood pressures running in 200s.Says has some funny feelings in the chest. No shortness of breath. Currently no cough. No fevers. Has headache. Vision is okay. Appetite is okay. No abdominal pain. She is having alternating constipation and diarrhea for last couple of weeks. Denies any blood in the stools. Normal bladder movements. Past medical history as mentioned above Past surgical history. Right breast biopsy. Colonoscopy. Right knee arthroscopy. Social history. . No smoking. Alcohol rarely. No drug use. Family history. No family history on file Principal Dx & Hospital Course #1 = Principal Diagnosis (1) Hypertensive urgency: Pt is a 62yoF with PMHx significant for hypertension, obesity, stage III kidney disease admitted with hypertensive urgency. Hypertensive urgency BPs significantly elevated on admission 231/104 Received IV hydralazine in the ER Placed on IV labetalol as needed Cardiology consulted, managing meds. 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 Possible diverticulitis CT abd/pelvis with no evidence of diverticulitis Was placed on Augmentin CARDIOLOGY COORDINATOR by PCP Consider discontinuing Augmentin Pt requesting to have diet advanced Will monitor symptoms CKD stage III Cr currently wnl Diet: HH DVT prophylaxis: Lovenox Full code Dispo: consider PT/OT, home per cardiology once BP controlled Updated Medication List Medication Instructions Recorded Confirmed Type amoxicillin 875 mg-potassium 1 tab PO BID 08/30/23 08/30/23 History clavulanate 125 mg tablet lisinopril 10 mg tablet 10 mg PO DAILY 08/30/23 08/30/23 History omeprazole 20 mg capsule,delayed 20 mg PO DAILY 08/30/23 08/30/23 History release amlodipine 5 mg tablet (Norvasc) 5 mg PO QPM #30 tabs 09/01/23 Rx carvedilol 6.25 mg tablet 6.25 mg PO BIDM #60 tabs 09/01/23 Rx lisinopril 20 mg tablet 20 mg PO DAILY #30 tabs 09/01/23 Rx spironolactone 25 mg tablet 25 mg PO QAM #30 tabs 09/01/23 Rx tamsulosin 0.4 mg capsule 0.4 mg PO QAM #30 caps 09/01/23 Rx Hospital Stay Data Consultations 08/29/23 23:11 ED Decision to Admit Stat 08/30/23 08:00 Consult Cardiology Routine 08/30/23 09:58 Consult Urology Routine Diagnostic Imagining Performed 08/29/23 21:50 CT head/brain wo con Stat 08/30/23 02:47 CT Abd and Pelvis [CT abd pelvis IV con only] Urgent 08/30/23 10:02 US pelvic complete Routine 08/30/23 10:03 US transvaginal Routine 09/01/23 10:55 US doppler renal [US duplex renal artery] Urgent Pending Results Patient Have Any Pending Studies at Discharge: No Discharge Instructions Given to Patient (Per Discharging Provider) Please take all medications as instructed on discharge list below. Please increase your lisinopril from 10 mg daily to 20 mg daily, add spironolactone 25 mg daily, discontinue Celebrex and avoid all nonsteroidal anti-inflammatory drugs if possible. You will need a basic metabolic profile in 1 week, please follow-up with your primary care doctor related to this and a recheck of your blood pressure. An outpatient stress test is recommended as outpatient. Please followup with your PCP to order this. You are not found to have any evidence of diverticulitis on CT imaging during this hospital stay. Therefore, you may stop Augmentin antibiotic. Please follow-up with PCP regarding reassessment of your abdomen and original symptoms. You underwent an ultrasound of the pelvis with findings suggestive of an exophytic fibroid measuring 4.5 cm. Please discuss with your PCP if any follow- up with STRUCTURAL LAYOUT WORKER is needed. You were also seen by urology while admitted and found to have kidney stones and a stone in your left ureter. As this is not causing problems and your kidney function is stable there was no need to intervene acutely. The recommendation is to continue Flomax and staying hydrated so the stone can ideally pass spontaneously. A repeat CT scan in the outpatient setting is recommended to ensure the kidney stone has passed. You were seen by Dr. Ross Felder from [facility] urology while admitted. It was a pleasure taking care of you! Please call if you have any questions or problems. You can reach a [facility] Hospitalist on duty at [facility] 24 hours a day by calling [phone]. Take care of yourself. Kiah Hernandez, [facility] Center[facility]
--- NOTE | 2023-09-01 11:56 | Cardiology Progress Note ---
Date of Service September 01, 2023 Assessment & Plan (1) Hypertensive urgency: (2) Headache: (3) Hypokalemia: (4) History of recent dental procedure: (5) Iron deficiency anemia: Plan Hypertensive urgency. + LVH on TTE. Nonpharmacologic and pharmacologic treatment of hypertension discussed. Lisinopril increased from 10 mg/day to 20 mg/day on admission. Add carvedilol. Add spironolactone 25 mg/day noting hypokalemia and hypertension. Discontinue Celebrex. Avoid NSAIDs if possible. History of rheumatic fever without history of rheumatid heart disease. TTE OK, normal to hyperdynamic LV systolic function, EF 65 to 70%, mild concentric left ventricular hypertrophy, no significant valvular pathology Recent dental work. Subjective chills. Check blood cultures. Atherosclerotic calcification. Recommend addition of aspirin and statin therapy. Hypokalemia. Supplement potassium orally and add spironolactone as above Anemia. Indices suggestive of iron deficiency. Check iron studies. Recommend evaluation for underlying cause. Moderate to large hiatal hernia. Continue PPI. 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 As per Hospitalist and Urology. 08/31/2023 Persistent hypertension still present but trending towards better control. Will increase carvedilol to 6.25 mg twice per day Add amlodipine 5 mg now then every evening Continue prior therapies Cardiac status stable to improved, expect blood pressure to improve on current adjustment Long-term management includes weight loss and sodium restriction, daily exercise 09/01/2023 Blood pressure trending towards better control. Expect several days or greater to full effect notable Would exclude renal vascular disease though suspect longstanding essential hypertension with recent exacerbation Continue current medical regimen as ordered Stable for discharge. Patient to follow blood pressure checks at home Admission and Anticipated Discharge Date Admission Date: August 30, 2023 Subjective Patient seen and examined, chart, medications, telemetry reviewed Blood pressure elevated last night but trending towards better control Headache substantially improved No chest pains, shortness of breath, tachypalpitations Review of Systems Review of Systems: All systems reviewed & are unremarkable except as noted in Subjective Physical Exam Constitutional: WD/WN, vitals as above + obese; no acute distress Eyes: PERRL, conjunctivae normal, anicteric sclerae ENMT: external ear and nose normal, oropharynx normal Neck: trachea midline, no thyromegaly Results & Data Vital Signs (Past 12 Hours) Vital Signs Temp Pulse Pulse Resp BP BP Pulse Ox 09/01/23 11:33 36.8 C 76 16 139/74 96 09/01/23 09:00 76 09/01/23 08:54 37.2 C 90 16 117/73 94 09/01/23 03:47 36.7 C 77 17 127/83 95 09/01/23 03:00 Pulse Ox O2 Del Method O2 Del Method 09/01/23 11:33 Room Air 09/01/23 09:00 09/01/23 08:54 Room Air 09/01/23 03:47 Room Air 09/01/23 03:00 95 Room Air
--- NOTE | 2023-09-01 16:39 | Communication Note ---
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 Her scripts were rerouted to [facility] and I connected with the pharmacist there who verbalized receipt of the e-scripts. DO David
== END 2023-09-01 14:58 | disposition home or self-care (01) | DRG 305 ==
LOC: ED 16:45 → SUATTDRO 08-30 01:39 → EDINP 08-30 01:39 → 2E 08-30 02:48